=== PATIENT | male | born 1940 | race Two or more races ===

== ENCOUNTER 2017-07-20 08:50 | Outpatient (CLI) | payer MEDICARE | END 2017-07-20 23:59 | disposition home health service (06) | LOC: WOU 08:50 | PROVIDERS: ATTEND Podiatrist Foot & Ankle Surgery | DX: I87.311 Chronic venous hypertension (idiopathic) with ulcer of right lower extremity (principal); L97.312 Non-pressure chronic ulcer of right ankle with fat layer exposed; L97.812 Non-pressure chronic ulcer of other part of right lower leg with fat layer exposed; M79.661 Pain in right lower leg; Z79.899 Other long term (current) drug therapy; Z86.718 Personal history of other venous thrombosis and embolism; I10 Essential (primary) hypertension; K21.9 Gastro-esophageal reflux disease without esophagitis | CPT/HCPCS: 11042; A6402 ==

== ENCOUNTER 2017-07-27 10:27 | Outpatient (CLI) | payer MEDICARE | END 2017-07-27 23:59 | disposition home health service (06) | LOC: WOU 10:27 | PROVIDERS: ATTEND Podiatrist Foot & Ankle Surgery | DX: I87.311 Chronic venous hypertension (idiopathic) with ulcer of right lower extremity (principal); L97.312 Non-pressure chronic ulcer of right ankle with fat layer exposed; L97.512 Non-pressure chronic ulcer of other part of right foot with fat layer exposed; Z86.718 Personal history of other venous thrombosis and embolism; I10 Essential (primary) hypertension; Z79.899 Other long term (current) drug therapy | CPT/HCPCS: 11042; A6402; J3490 ==

== ENCOUNTER 2017-07-28 09:30 | Outpatient (CLI) | payer MEDICARE | END 2017-07-28 23:59 | disposition home or self-care (01) | LOC: WOU 09:30 | PROVIDERS: ATTEND Podiatrist Foot & Ankle Surgery | DX: I70.223 Atherosclerosis of native arteries of extremities with rest pain, bilateral legs (principal); I87.2 Venous insufficiency (chronic) (peripheral); L97.519 Non-pressure chronic ulcer of other part of right foot with unspecified severity | CPT/HCPCS: 11042; 93970-TC; A6402; J7040 ==

== ENCOUNTER 2017-08-03 09:15 | Outpatient (CLI) | payer MEDICARE | END 2017-08-03 23:59 | disposition home health service (06) | LOC: WOU 09:15 | PROVIDERS: ATTEND Podiatrist Foot & Ankle Surgery | DX: I87.311 Chronic venous hypertension (idiopathic) with ulcer of right lower extremity (principal); L97.312 Non-pressure chronic ulcer of right ankle with fat layer exposed; L97.812 Non-pressure chronic ulcer of other part of right lower leg with fat layer exposed; I87.2 Venous insufficiency (chronic) (peripheral); M79.661 Pain in right lower leg; I10 Essential (primary) hypertension; I82.531 Chronic embolism and thrombosis of right popliteal vein | CPT/HCPCS: 11042; A6402; J3490 ==

== ENCOUNTER 2017-08-10 09:15 | Outpatient (CLI) | payer MEDICARE | END 2017-08-10 23:59 | disposition home health service (06) | LOC: WOU 09:15 | PROVIDERS: ATTEND Podiatrist Foot & Ankle Surgery | DX: I87.311 Chronic venous hypertension (idiopathic) with ulcer of right lower extremity (principal); L97.312 Non-pressure chronic ulcer of right ankle with fat layer exposed; I87.2 Venous insufficiency (chronic) (peripheral); M79.661 Pain in right lower leg; I10 Essential (primary) hypertension; Z86.718 Personal history of other venous thrombosis and embolism | CPT/HCPCS: 11042; A6402; J3490; J7040 ==

== ENCOUNTER 2017-08-17 08:45 | Outpatient (CLI) | payer MEDICARE | END 2017-08-17 23:59 | disposition home health service (06) | LOC: WOU 08:45 | PROVIDERS: ATTEND Podiatrist Foot & Ankle Surgery | DX: I87.311 Chronic venous hypertension (idiopathic) with ulcer of right lower extremity (principal); L97.312 Non-pressure chronic ulcer of right ankle with fat layer exposed; I87.2 Venous insufficiency (chronic) (peripheral); M79.661 Pain in right lower leg | CPT/HCPCS: 11042; A6402; J3490; J7040 ==

== ENCOUNTER 2017-08-26 11:35 | Outpatient (CLI) | payer MEDICARE | END 2017-08-26 23:59 | disposition home health service (06) | LOC: WOU 11:35 | PROVIDERS: ATTEND Podiatrist Foot & Ankle Surgery | DX: I87.311 Chronic venous hypertension (idiopathic) with ulcer of right lower extremity (principal); L97.312 Non-pressure chronic ulcer of right ankle with fat layer exposed; Z86.718 Personal history of other venous thrombosis and embolism; I10 Essential (primary) hypertension | CPT/HCPCS: 11042; A6402; J3490 ==

== ENCOUNTER 2017-09-02 12:30 | Outpatient (CLI) | payer MEDICARE | END 2017-09-02 23:59 | disposition home or self-care (01) | LOC: WOU 12:30 | PROVIDERS: ATTEND Podiatrist Foot & Ankle Surgery | DX: I87.311 Chronic venous hypertension (idiopathic) with ulcer of right lower extremity (principal); L97.312 Non-pressure chronic ulcer of right ankle with fat layer exposed; M79.661 Pain in right lower leg; I87.2 Venous insufficiency (chronic) (peripheral); I82.531 Chronic embolism and thrombosis of right popliteal vein | CPT/HCPCS: 11042; A6402 ==

== ENCOUNTER 2017-09-14 12:45 | Outpatient (CLI) | payer MEDICARE | END 2017-09-14 23:59 | disposition home health service (06) | LOC: WOU 12:45 | PROVIDERS: ATTEND Podiatrist Foot & Ankle Surgery | DX: I87.311 Chronic venous hypertension (idiopathic) with ulcer of right lower extremity (principal); L97.312 Non-pressure chronic ulcer of right ankle with fat layer exposed; I82.531 Chronic embolism and thrombosis of right popliteal vein; I70.209 Unspecified atherosclerosis of native arteries of extremities, unspecified extremity | CPT/HCPCS: 11042; A6402 ==

== ENCOUNTER 2017-09-15 12:50 | Outpatient (CLI) | payer MEDICARE | END 2017-09-15 23:59 | disposition home health service (06) | LOC: VASLAB 12:50 | PROVIDERS: ATTEND Surgery Vascular Surgery | DX: I82.501 Chronic embolism and thrombosis of unspecified deep veins of right lower extremity (principal); I87.311 Chronic venous hypertension (idiopathic) with ulcer of right lower extremity; L97.312 Non-pressure chronic ulcer of right ankle with fat layer exposed | CPT/HCPCS: A6402; G0463 ==

== ENCOUNTER 2017-09-21 09:55 | Outpatient (CLI) | payer MEDICARE | END 2017-09-21 23:59 | disposition home or self-care (01) | LOC: WOU 09:55 | PROVIDERS: ATTEND Podiatrist Foot & Ankle Surgery | DX: I87.2 Venous insufficiency (chronic) (peripheral) (principal); I10 Essential (primary) hypertension | CPT/HCPCS: G0463 ==

== ENCOUNTER 2017-11-16 11:00 | Outpatient (CLI) | payer MEDICARE | END 2017-11-16 23:59 | disposition home or self-care (01) | LOC: WOU 11:00 | PROVIDERS: ATTEND Podiatrist Foot & Ankle Surgery | DX: I87.2 Venous insufficiency (chronic) (peripheral) (principal); L60.3 Nail dystrophy; Z86.718 Personal history of other venous thrombosis and embolism; I10 Essential (primary) hypertension | CPT/HCPCS: G0463 ==

== ENCOUNTER 2018-01-14 10:59 | Outpatient (CLI) | payer MEDICARE | END 2018-01-14 23:59 | disposition home or self-care (01) | LOC: WOU 10:59 | PROVIDERS: ATTEND Podiatrist Foot & Ankle Surgery | DX: I87.2 Venous insufficiency (chronic) (peripheral) (principal); Z86.718 Personal history of other venous thrombosis and embolism; L60.3 Nail dystrophy; I10 Essential (primary) hypertension | CPT/HCPCS: G0463 ==

== ENCOUNTER 2018-03-15 10:05 | Outpatient (CLI) | payer MEDICARE | END 2018-03-15 23:59 | disposition home or self-care (01) | LOC: WOU 10:05 | PROVIDERS: ATTEND Podiatrist Foot & Ankle Surgery | DX: I87.2 Venous insufficiency (chronic) (peripheral) (principal); L60.3 Nail dystrophy; M79.672 Pain in left foot; M21.769 Unequal limb length (acquired), unspecified tibia and fibula | CPT/HCPCS: G0463; Z7610 ==

== ENCOUNTER 2018-05-17 08:20 | Outpatient (CLI) | payer MEDICARE | END 2018-05-17 23:59 | disposition home or self-care (01) | LOC: WOU 08:20 | PROVIDERS: ATTEND Podiatrist Foot & Ankle Surgery | DX: M79.672 Pain in left foot (principal); M21.769 Unequal limb length (acquired), unspecified tibia and fibula; I87.2 Venous insufficiency (chronic) (peripheral); L60.3 Nail dystrophy; I10 Essential (primary) hypertension; E11.9 Type 2 diabetes mellitus without complications | CPT/HCPCS: G0463; Z7610 ==

== ENCOUNTER 2018-09-20 08:10 | Outpatient (CLI) | payer MEDICARE | END 2018-09-20 23:59 | disposition home or self-care (01) | LOC: WOU 08:10 | PROVIDERS: ATTEND Podiatrist Foot & Ankle Surgery | DX: I87.312 Chronic venous hypertension (idiopathic) with ulcer of left lower extremity (principal); L97.322 Non-pressure chronic ulcer of left ankle with fat layer exposed; I82.402 Acute embolism and thrombosis of unspecified deep veins of left lower extremity; M79.662 Pain in left lower leg; L60.3 Nail dystrophy; M21.769 Unequal limb length (acquired), unspecified tibia and fibula; Z79.01 Long term (current) use of anticoagulants | CPT/HCPCS: 11042; A6402 ==

== ENCOUNTER 2018-09-27 08:13 | Outpatient (CLI) | payer MEDICARE | END 2018-09-27 23:59 | disposition home or self-care (01) | LOC: WOU 08:13 | PROVIDERS: ATTEND Podiatrist Foot & Ankle Surgery | DX: I87.312 Chronic venous hypertension (idiopathic) with ulcer of left lower extremity (principal); L97.322 Non-pressure chronic ulcer of left ankle with fat layer exposed; I82.402 Acute embolism and thrombosis of unspecified deep veins of left lower extremity; M79.662 Pain in left lower leg; L60.3 Nail dystrophy; M21.769 Unequal limb length (acquired), unspecified tibia and fibula; I10 Essential (primary) hypertension; Z79.01 Long term (current) use of anticoagulants | CPT/HCPCS: 11042; A6402; Z7610 ==

== ENCOUNTER 2018-10-04 08:05 | Outpatient (CLI) | payer MEDICARE | END 2018-10-04 23:59 | disposition home or self-care (01) | LOC: WOU 08:05 | PROVIDERS: ATTEND Podiatrist Foot & Ankle Surgery | DX: I87.312 Chronic venous hypertension (idiopathic) with ulcer of left lower extremity (principal); L97.322 Non-pressure chronic ulcer of left ankle with fat layer exposed; I82.402 Acute embolism and thrombosis of unspecified deep veins of left lower extremity; Z79.01 Long term (current) use of anticoagulants; M79.662 Pain in left lower leg; I10 Essential (primary) hypertension; L60.3 Nail dystrophy; M21.769 Unequal limb length (acquired), unspecified tibia and fibula | CPT/HCPCS: 11042; A6402 ==

== ENCOUNTER 2018-10-11 08:10 | Outpatient (CLI) | payer MEDICARE | END 2018-10-11 23:59 | disposition home or self-care (01) | LOC: WOU 08:10 | PROVIDERS: ATTEND Podiatrist Foot & Ankle Surgery | DX: I87.312 Chronic venous hypertension (idiopathic) with ulcer of left lower extremity (principal); L97.322 Non-pressure chronic ulcer of left ankle with fat layer exposed; I82.402 Acute embolism and thrombosis of unspecified deep veins of left lower extremity; M79.662 Pain in left lower leg; L60.3 Nail dystrophy; M21.769 Unequal limb length (acquired), unspecified tibia and fibula; Z79.01 Long term (current) use of anticoagulants; Z79.82 Long term (current) use of aspirin; I10 Essential (primary) hypertension | CPT/HCPCS: 11042; A6402 ==

== ENCOUNTER 2018-10-18 09:05 | Outpatient (CLI) | payer MEDICARE | END 2018-10-18 23:59 | disposition home or self-care (01) | LOC: WOU 09:05 | PROVIDERS: ATTEND Podiatrist Foot & Ankle Surgery | DX: I87.312 Chronic venous hypertension (idiopathic) with ulcer of left lower extremity (principal); L97.322 Non-pressure chronic ulcer of left ankle with fat layer exposed; I82.402 Acute embolism and thrombosis of unspecified deep veins of left lower extremity; M79.662 Pain in left lower leg; L60.3 Nail dystrophy; M21.769 Unequal limb length (acquired), unspecified tibia and fibula; I10 Essential (primary) hypertension; Z79.01 Long term (current) use of anticoagulants | CPT/HCPCS: 11042; A6402; J3490 ==

== ENCOUNTER 2018-10-25 08:10 | Outpatient (CLI) | payer MEDICARE | END 2018-10-25 23:59 | disposition home or self-care (01) | LOC: WOU 08:10 | PROVIDERS: ATTEND Podiatrist Foot & Ankle Surgery | DX: I87.312 Chronic venous hypertension (idiopathic) with ulcer of left lower extremity (principal); L97.322 Non-pressure chronic ulcer of left ankle with fat layer exposed; I82.402 Acute embolism and thrombosis of unspecified deep veins of left lower extremity; M79.662 Pain in left lower leg; L60.3 Nail dystrophy; M21.769 Unequal limb length (acquired), unspecified tibia and fibula; I10 Essential (primary) hypertension; Z79.01 Long term (current) use of anticoagulants | CPT/HCPCS: 11042; A6402 ==

== ENCOUNTER 2018-11-01 08:27 | Outpatient (CLI) | payer MEDICARE | END 2018-11-01 23:59 | disposition home or self-care (01) | LOC: WOU 08:27 | PROVIDERS: ATTEND Podiatrist Foot & Ankle Surgery | DX: I87.312 Chronic venous hypertension (idiopathic) with ulcer of left lower extremity (principal); L97.322 Non-pressure chronic ulcer of left ankle with fat layer exposed; I82.402 Acute embolism and thrombosis of unspecified deep veins of left lower extremity; M79.662 Pain in left lower leg; L60.3 Nail dystrophy; M21.769 Unequal limb length (acquired), unspecified tibia and fibula; I10 Essential (primary) hypertension; Z79.01 Long term (current) use of anticoagulants; Z79.82 Long term (current) use of aspirin | CPT/HCPCS: 11042; A6402; J3490 ==

== ENCOUNTER 2018-11-08 08:40 | Outpatient (CLI) | payer MEDICARE | END 2018-11-08 23:59 | disposition home or self-care (01) | LOC: WOU 08:40 | PROVIDERS: ATTEND Podiatrist Foot & Ankle Surgery | DX: I87.312 Chronic venous hypertension (idiopathic) with ulcer of left lower extremity (principal); L97.322 Non-pressure chronic ulcer of left ankle with fat layer exposed; I82.402 Acute embolism and thrombosis of unspecified deep veins of left lower extremity; M79.662 Pain in left lower leg; L60.3 Nail dystrophy; M21.769 Unequal limb length (acquired), unspecified tibia and fibula; Z79.01 Long term (current) use of anticoagulants; Z79.82 Long term (current) use of aspirin | CPT/HCPCS: 11043; A6402; J7040 ==

== ENCOUNTER 2018-11-15 08:30 | Outpatient (CLI) | payer MEDICARE | END 2018-11-15 23:59 | disposition home or self-care (01) | LOC: WOU 08:30 | PROVIDERS: ATTEND Podiatrist Foot & Ankle Surgery | DX: I87.312 Chronic venous hypertension (idiopathic) with ulcer of left lower extremity (principal); L97.322 Non-pressure chronic ulcer of left ankle with fat layer exposed; I82.402 Acute embolism and thrombosis of unspecified deep veins of left lower extremity; M79.662 Pain in left lower leg; L60.3 Nail dystrophy; M21.769 Unequal limb length (acquired), unspecified tibia and fibula; Z79.01 Long term (current) use of anticoagulants; Z79.82 Long term (current) use of aspirin | CPT/HCPCS: 15271; A6402; A6452; Q4133 ==

== ENCOUNTER 2018-11-22 08:45 | Outpatient (CLI) | payer MEDICARE | END 2018-11-22 23:59 | disposition home or self-care (01) | LOC: WOU 08:45 | PROVIDERS: ATTEND Podiatrist Foot & Ankle Surgery | DX: I87.312 Chronic venous hypertension (idiopathic) with ulcer of left lower extremity (principal); L97.325 Non-pressure chronic ulcer of left ankle with muscle involvement without evidence of necrosis; S91.312A Laceration without foreign body, left foot, initial encounter; X58.XXXA Exposure to other specified factors, initial encounter; Y92.89 Other specified places as the place of occurrence of the external cause; I82.402 Acute embolism and thrombosis of unspecified deep veins of left lower extremity; M79.662 Pain in left lower leg; L60.3 Nail dystrophy; M21.769 Unequal limb length (acquired), unspecified tibia and fibula; Z79.01 Long term (current) use of anticoagulants; Z79.82 Long term (current) use of aspirin | CPT/HCPCS: 11042; 15271; A6402; A6452; Q4133 ==

== ENCOUNTER 2018-11-24 11:23 | Outpatient (CLI) | payer MEDICARE | END 2018-11-24 23:59 | disposition home or self-care (01) | LOC: RAD 11:23 | PROVIDERS: ATTEND Podiatrist Foot & Ankle Surgery | DX: S91.302A Unspecified open wound, left foot, initial encounter (principal); M19.072 Primary osteoarthritis, left ankle and foot; M77.32 Calcaneal spur, left foot; X58.XXXA Exposure to other specified factors, initial encounter; Y93.89 Activity, other specified; Y92.89 Other specified places as the place of occurrence of the external cause; Y99.8 Other external cause status | CPT/HCPCS: 73630-TC ==

== ENCOUNTER 2018-11-29 08:35 | Outpatient (CLI) | payer MEDICARE | END 2018-11-29 23:59 | disposition home or self-care (01) | LOC: WOU 08:35 | PROVIDERS: ATTEND Podiatrist Foot & Ankle Surgery | DX: I87.312 Chronic venous hypertension (idiopathic) with ulcer of left lower extremity (principal); L97.322 Non-pressure chronic ulcer of left ankle with fat layer exposed; I82.402 Acute embolism and thrombosis of unspecified deep veins of left lower extremity; M79.662 Pain in left lower leg; L60.3 Nail dystrophy; M21.769 Unequal limb length (acquired), unspecified tibia and fibula; I10 Essential (primary) hypertension; Z79.01 Long term (current) use of anticoagulants; Z79.82 Long term (current) use of aspirin | CPT/HCPCS: 15271; A6402; A6452; Q4133 ==

== ENCOUNTER 2018-12-06 08:45 | Outpatient (CLI) | payer MEDICARE | END 2018-12-06 23:59 | disposition home or self-care (01) | LOC: WOU 08:45 | PROVIDERS: ATTEND Podiatrist Foot & Ankle Surgery | DX: I87.312 Chronic venous hypertension (idiopathic) with ulcer of left lower extremity (principal); L97.322 Non-pressure chronic ulcer of left ankle with fat layer exposed; S81.811A Laceration without foreign body, right lower leg, initial encounter; W18.49XA Other slipping, tripping and stumbling without falling, initial encounter; Y92.89 Other specified places as the place of occurrence of the external cause; I82.402 Acute embolism and thrombosis of unspecified deep veins of left lower extremity; M79.662 Pain in left lower leg; L60.3 Nail dystrophy; M21.769 Unequal limb length (acquired), unspecified tibia and fibula; Z79.01 Long term (current) use of anticoagulants; Z79.82 Long term (current) use of aspirin | CPT/HCPCS: 15271; A6402; A6452; Q4133 ==

== ENCOUNTER 2018-12-13 08:45 | Outpatient (CLI) | payer MEDICARE | END 2018-12-13 23:59 | disposition home or self-care (01) | LOC: WOU 08:45 | PROVIDERS: ATTEND Podiatrist Foot & Ankle Surgery | DX: I87.312 Chronic venous hypertension (idiopathic) with ulcer of left lower extremity (principal); L97.322 Non-pressure chronic ulcer of left ankle with fat layer exposed; I82.402 Acute embolism and thrombosis of unspecified deep veins of left lower extremity; M79.662 Pain in left lower leg; L60.3 Nail dystrophy; I10 Essential (primary) hypertension; M21.769 Unequal limb length (acquired), unspecified tibia and fibula; Z79.01 Long term (current) use of anticoagulants; Z79.82 Long term (current) use of aspirin | CPT/HCPCS: 15271; A6253; A6402; A6452; Q4133 ==

== ENCOUNTER 2018-12-14 14:10 | Outpatient (CLI) | payer MEDICARE | END 2018-12-14 23:59 | disposition home or self-care (01) | LOC: VASLAB 14:10 | PROVIDERS: ATTEND Surgery Vascular Surgery | DX: I87.2 Venous insufficiency (chronic) (peripheral) (principal); L97.829 Non-pressure chronic ulcer of other part of left lower leg with unspecified severity; Z79.01 Long term (current) use of anticoagulants; Z86.718 Personal history of other venous thrombosis and embolism | CPT/HCPCS: G0463 ==

== ENCOUNTER 2018-12-20 08:40 | Outpatient (CLI) | payer MEDICARE | END 2018-12-20 23:59 | disposition home or self-care (01) | LOC: WOU 08:40 | PROVIDERS: ATTEND Podiatrist Foot & Ankle Surgery | DX: I87.312 Chronic venous hypertension (idiopathic) with ulcer of left lower extremity (principal); L97.322 Non-pressure chronic ulcer of left ankle with fat layer exposed; S81.811D Laceration without foreign body, right lower leg, subsequent encounter; X58.XXXD Exposure to other specified factors, subsequent encounter; I82.402 Acute embolism and thrombosis of unspecified deep veins of left lower extremity; M79.662 Pain in left lower leg; L60.3 Nail dystrophy; M21.769 Unequal limb length (acquired), unspecified tibia and fibula; Z79.01 Long term (current) use of anticoagulants | CPT/HCPCS: 15271; A6402; A6452; Q4133 ==

== ENCOUNTER 2018-12-27 08:50 | Outpatient (CLI) | payer MEDICARE | END 2018-12-27 23:59 | disposition home or self-care (01) | LOC: WOU 08:50 | PROVIDERS: ATTEND Podiatrist Foot & Ankle Surgery | DX: I87.312 Chronic venous hypertension (idiopathic) with ulcer of left lower extremity (principal); L97.322 Non-pressure chronic ulcer of left ankle with fat layer exposed; I82.402 Acute embolism and thrombosis of unspecified deep veins of left lower extremity; L60.3 Nail dystrophy; M21.769 Unequal limb length (acquired), unspecified tibia and fibula; I10 Essential (primary) hypertension; I82.409 Acute embolism and thrombosis of unspecified deep veins of unspecified lower extremity; Z79.01 Long term (current) use of anticoagulants | CPT/HCPCS: 15271; Q4133; A6402 ==

== ENCOUNTER 2018-12-30 13:28 | Outpatient (CLI) | payer MEDICARE | END 2018-12-30 23:59 | disposition home or self-care (01) | LOC: CARD 13:28 | PROVIDERS: ATTEND Surgery Vascular Surgery | DX: I82.432 Acute embolism and thrombosis of left popliteal vein (principal) | CPT/HCPCS: 93971-TC ==

== ENCOUNTER 2019-01-03 08:45 | Outpatient (CLI) | payer MEDICARE | END 2019-01-03 23:59 | disposition home or self-care (01) | LOC: WOU 08:45 | PROVIDERS: ATTEND Podiatrist Foot & Ankle Surgery | DX: I87.312 Chronic venous hypertension (idiopathic) with ulcer of left lower extremity (principal); L97.322 Non-pressure chronic ulcer of left ankle with fat layer exposed; I82.402 Acute embolism and thrombosis of unspecified deep veins of left lower extremity; M79.662 Pain in left lower leg; L60.3 Nail dystrophy; M21.769 Unequal limb length (acquired), unspecified tibia and fibula; Z79.01 Long term (current) use of anticoagulants; I10 Essential (primary) hypertension | CPT/HCPCS: 15275; A6402; A6452; Q4133 ==

== ENCOUNTER 2019-01-10 13:10 | Outpatient (CLI) | payer MEDICARE | END 2019-01-10 23:59 | disposition home or self-care (01) | LOC: WOU 13:10 | PROVIDERS: ATTEND Podiatrist Foot & Ankle Surgery | DX: I87.312 Chronic venous hypertension (idiopathic) with ulcer of left lower extremity (principal); L97.322 Non-pressure chronic ulcer of left ankle with fat layer exposed; I82.402 Acute embolism and thrombosis of unspecified deep veins of left lower extremity; M79.662 Pain in left lower leg; L60.3 Nail dystrophy; M21.769 Unequal limb length (acquired), unspecified tibia and fibula; I10 Essential (primary) hypertension; Z79.01 Long term (current) use of anticoagulants | CPT/HCPCS: 11042; A6402 ==

== ENCOUNTER 2019-01-17 13:10 | Outpatient (CLI) | payer MEDICARE | END 2019-01-17 23:59 | disposition home or self-care (01) | LOC: WOU 13:10 | PROVIDERS: ATTEND Podiatrist Foot & Ankle Surgery | DX: I87.312 Chronic venous hypertension (idiopathic) with ulcer of left lower extremity (principal); L97.322 Non-pressure chronic ulcer of left ankle with fat layer exposed; I82.402 Acute embolism and thrombosis of unspecified deep veins of left lower extremity; L60.3 Nail dystrophy; M21.769 Unequal limb length (acquired), unspecified tibia and fibula; I10 Essential (primary) hypertension; Z79.01 Long term (current) use of anticoagulants | CPT/HCPCS: 11042; A6402 ==

== ENCOUNTER 2019-02-14 08:30 | Outpatient (CLI) | payer MEDICARE | END 2019-02-14 23:59 | disposition home or self-care (01) | LOC: WOU 08:30 | PROVIDERS: ATTEND Podiatrist Foot & Ankle Surgery | DX: I87.312 Chronic venous hypertension (idiopathic) with ulcer of left lower extremity (principal); L97.322 Non-pressure chronic ulcer of left ankle with fat layer exposed; I82.402 Acute embolism and thrombosis of unspecified deep veins of left lower extremity; M79.662 Pain in left lower leg; L60.3 Nail dystrophy; I10 Essential (primary) hypertension; M21.769 Unequal limb length (acquired), unspecified tibia and fibula; Z79.01 Long term (current) use of anticoagulants | CPT/HCPCS: 11042; A6402 ==

== ENCOUNTER 2019-02-21 08:35 | Outpatient (CLI) | payer MEDICARE | END 2019-02-21 23:59 | disposition home or self-care (01) | LOC: WOU 08:35 | PROVIDERS: ATTEND Podiatrist Foot & Ankle Surgery | DX: I87.312 Chronic venous hypertension (idiopathic) with ulcer of left lower extremity (principal); L97.322 Non-pressure chronic ulcer of left ankle with fat layer exposed; I82.402 Acute embolism and thrombosis of unspecified deep veins of left lower extremity; L60.3 Nail dystrophy; M21.769 Unequal limb length (acquired), unspecified tibia and fibula; Z79.01 Long term (current) use of anticoagulants | CPT/HCPCS: 11042; A6402 ==

== ENCOUNTER 2019-03-10 08:30 | Outpatient (CLI) | payer MEDICARE | END 2019-03-10 23:59 | disposition home or self-care (01) | LOC: WOU 08:30 | PROVIDERS: ATTEND Podiatrist Foot & Ankle Surgery | DX: I87.312 Chronic venous hypertension (idiopathic) with ulcer of left lower extremity (principal); L97.322 Non-pressure chronic ulcer of left ankle with fat layer exposed; M79.662 Pain in left lower leg; L60.3 Nail dystrophy; M21.769 Unequal limb length (acquired), unspecified tibia and fibula; I87.2 Venous insufficiency (chronic) (peripheral); Z86.718 Personal history of other venous thrombosis and embolism; Z79.01 Long term (current) use of anticoagulants; I10 Essential (primary) hypertension | CPT/HCPCS: 11042; A6402 ==

== ENCOUNTER 2019-03-24 08:30 | Outpatient (CLI) | payer MEDICARE | END 2019-03-24 23:59 | disposition home or self-care (01) | LOC: WOU 08:30 | PROVIDERS: ATTEND Podiatrist Foot & Ankle Surgery | DX: I87.312 Chronic venous hypertension (idiopathic) with ulcer of left lower extremity (principal); L97.322 Non-pressure chronic ulcer of left ankle with fat layer exposed; M79.675 Pain in left toe(s); I10 Essential (primary) hypertension; Z79.01 Long term (current) use of anticoagulants; Z79.899 Other long term (current) drug therapy; Z86.718 Personal history of other venous thrombosis and embolism; M21.769 Unequal limb length (acquired), unspecified tibia and fibula | CPT/HCPCS: 11042 ==

== ENCOUNTER 2019-04-07 08:45 | Outpatient (CLI) | payer MEDICARE | END 2019-04-07 23:59 | disposition home or self-care (01) | LOC: WOU 08:45 | PROVIDERS: ATTEND Podiatrist Foot & Ankle Surgery | DX: I87.012 Postthrombotic syndrome with ulcer of left lower extremity (principal); L97.322 Non-pressure chronic ulcer of left ankle with fat layer exposed; S91.312A Laceration without foreign body, left foot, initial encounter; X58.XXXA Exposure to other specified factors, initial encounter; Y92.89 Other specified places as the place of occurrence of the external cause; L60.3 Nail dystrophy; M21.769 Unequal limb length (acquired), unspecified tibia and fibula; M79.672 Pain in left foot; M79.662 Pain in left lower leg; Z86.718 Personal history of other venous thrombosis and embolism; Z79.01 Long term (current) use of anticoagulants | CPT/HCPCS: 11042; 15271; 73630; J3490; Q4158 ×2 ==

== ENCOUNTER 2019-04-14 08:45 | Outpatient (CLI) | payer MEDICARE | END 2019-04-14 23:59 | disposition home or self-care (01) | LOC: WOU 08:45 | PROVIDERS: ATTEND Podiatrist Foot & Ankle Surgery | DX: I87.312 Chronic venous hypertension (idiopathic) with ulcer of left lower extremity (principal); L97.322 Non-pressure chronic ulcer of left ankle with fat layer exposed; L60.3 Nail dystrophy; M21.769 Unequal limb length (acquired), unspecified tibia and fibula; I10 Essential (primary) hypertension; Z86.718 Personal history of other venous thrombosis and embolism; Z79.01 Long term (current) use of anticoagulants | CPT/HCPCS: 15271; Q4158 ×2 ==

== ENCOUNTER 2019-04-25 08:50 | Outpatient (CLI) | payer MEDICARE | END 2019-04-25 23:59 | disposition home or self-care (01) | LOC: WOU 08:50 | PROVIDERS: ATTEND Podiatrist Foot & Ankle Surgery | DX: I87.312 Chronic venous hypertension (idiopathic) with ulcer of left lower extremity (principal); L97.328 Non-pressure chronic ulcer of left ankle with other specified severity; S91.312A Laceration without foreign body, left foot, initial encounter; X58.XXXA Exposure to other specified factors, initial encounter; Y92.89 Other specified places as the place of occurrence of the external cause; I87.2 Venous insufficiency (chronic) (peripheral); M79.662 Pain in left lower leg; L60.3 Nail dystrophy; M21.769 Unequal limb length (acquired), unspecified tibia and fibula; Z86.718 Personal history of other venous thrombosis and embolism; Z79.01 Long term (current) use of anticoagulants | CPT/HCPCS: 11042 ==

== ENCOUNTER 2019-05-05 12:17 | Outpatient (CLI) | payer MEDICARE | END 2019-05-05 23:59 | disposition home or self-care (01) | LOC: CARD 12:17 | PROVIDERS: ATTEND Podiatrist Foot & Ankle Surgery | DX: M79.605 Pain in left leg (principal); L97.929 Non-pressure chronic ulcer of unspecified part of left lower leg with unspecified severity; I73.9 Peripheral vascular disease, unspecified | CPT/HCPCS: 93926-TC ==

== ENCOUNTER 2019-05-09 10:20 | Outpatient (CLI) | payer MEDICARE | END 2019-05-09 23:59 | disposition home or self-care (01) | LOC: WOU 10:20 | PROVIDERS: ATTEND Podiatrist Foot & Ankle Surgery | DX: Z09 Encounter for follow-up examination after completed treatment for conditions other than malignant neoplasm (principal); Z87.2 Personal history of diseases of the skin and subcutaneous tissue; I87.2 Venous insufficiency (chronic) (peripheral); L84 Corns and callosities; M79.662 Pain in left lower leg; L60.3 Nail dystrophy; M21.769 Unequal limb length (acquired), unspecified tibia and fibula | CPT/HCPCS: G0463 ==

== ENCOUNTER 2019-06-13 08:35 | Outpatient (CLI) | payer MEDICARE | END 2019-06-13 23:59 | disposition home or self-care (01) | LOC: WOU 08:35 | PROVIDERS: ATTEND Podiatrist Foot & Ankle Surgery | DX: Z09 Encounter for follow-up examination after completed treatment for conditions other than malignant neoplasm (principal); I87.2 Venous insufficiency (chronic) (peripheral); L60.3 Nail dystrophy; M21.769 Unequal limb length (acquired), unspecified tibia and fibula; I10 Essential (primary) hypertension; Z87.2 Personal history of diseases of the skin and subcutaneous tissue; Z79.01 Long term (current) use of anticoagulants | CPT/HCPCS: G0463 ==

== ENCOUNTER 2019-09-12 10:25 | Outpatient (CLI) | payer MEDICARE | END 2019-09-12 23:59 | disposition home or self-care (01) | LOC: WOU 10:25 | PROVIDERS: ATTEND Podiatrist Foot & Ankle Surgery | DX: L60.3 Nail dystrophy (principal); I87.2 Venous insufficiency (chronic) (peripheral); M21.769 Unequal limb length (acquired), unspecified tibia and fibula; M79.671 Pain in right foot; M79.672 Pain in left foot; Z79.01 Long term (current) use of anticoagulants | CPT/HCPCS: G0463 ==

== ENCOUNTER 2019-10-06 08:25 | Outpatient (CLI) | payer MEDICARE | END 2019-10-06 23:59 | disposition home or self-care (01) | LOC: WOU 08:25 | PROVIDERS: ATTEND Podiatrist Foot & Ankle Surgery | DX: L89.893 Pressure ulcer of other site, stage 3 (principal); M21.769 Unequal limb length (acquired), unspecified tibia and fibula; Z86.718 Personal history of other venous thrombosis and embolism; Z79.01 Long term (current) use of anticoagulants; I87.2 Venous insufficiency (chronic) (peripheral); L60.3 Nail dystrophy; M79.672 Pain in left foot | CPT/HCPCS: 11042 ==

== ENCOUNTER 2019-10-13 08:25 | Outpatient (CLI) | payer MEDICARE | END 2019-10-13 23:59 | disposition home or self-care (01) | LOC: WOU 08:25 | PROVIDERS: ATTEND Podiatrist Foot & Ankle Surgery | DX: L89.893 Pressure ulcer of other site, stage 3 (principal); M21.769 Unequal limb length (acquired), unspecified tibia and fibula; I87.2 Venous insufficiency (chronic) (peripheral); L60.3 Nail dystrophy; M79.672 Pain in left foot; Z86.718 Personal history of other venous thrombosis and embolism; I10 Essential (primary) hypertension; Z90.5 Acquired absence of kidney; Z79.01 Long term (current) use of anticoagulants | CPT/HCPCS: 11042 ==

== ENCOUNTER 2019-10-20 08:20 | Outpatient (CLI) | payer MEDICARE | END 2019-10-20 23:59 | disposition home or self-care (01) | LOC: WOU 08:20 | PROVIDERS: ATTEND Podiatrist Foot & Ankle Surgery | DX: Z09 Encounter for follow-up examination after completed treatment for conditions other than malignant neoplasm (principal); Z86.718 Personal history of other venous thrombosis and embolism; Z79.01 Long term (current) use of anticoagulants; L60.3 Nail dystrophy; M21.769 Unequal limb length (acquired), unspecified tibia and fibula; I87.2 Venous insufficiency (chronic) (peripheral); L84 Corns and callosities | CPT/HCPCS: G0463 ==

== ENCOUNTER 2019-12-01 08:45 | Outpatient (CLI) | payer MEDICARE | END 2019-12-01 23:59 | disposition home or self-care (01) | LOC: WOU 08:45 | PROVIDERS: ATTEND Podiatrist Foot & Ankle Surgery | DX: L60.3 Nail dystrophy (principal); L84 Corns and callosities; I87.2 Venous insufficiency (chronic) (peripheral); M79.672 Pain in left foot; M79.671 Pain in right foot; M21.769 Unequal limb length (acquired), unspecified tibia and fibula; Z79.01 Long term (current) use of anticoagulants; I10 Essential (primary) hypertension | CPT/HCPCS: G0463 ==

== ENCOUNTER 2019-12-22 08:00 | Outpatient (CLI) | payer MEDICARE | END 2019-12-22 23:59 | disposition home or self-care (01) | LOC: WOU 08:00 | PROVIDERS: ATTEND Podiatrist Foot & Ankle Surgery | DX: L89.893 Pressure ulcer of other site, stage 3 (principal); I87.2 Venous insufficiency (chronic) (peripheral); L84 Corns and callosities; L60.3 Nail dystrophy; M79.672 Pain in left foot; M79.671 Pain in right foot; M21.769 Unequal limb length (acquired), unspecified tibia and fibula; Z79.01 Long term (current) use of anticoagulants | CPT/HCPCS: 11042 ==

== ENCOUNTER 2019-12-29 08:20 | Outpatient (CLI) | payer MEDICARE | END 2019-12-29 23:59 | disposition home or self-care (01) | LOC: WOU 08:20 | PROVIDERS: ATTEND Podiatrist Foot & Ankle Surgery | DX: L89.893 Pressure ulcer of other site, stage 3 (principal); L97.522 Non-pressure chronic ulcer of other part of left foot with fat layer exposed; I87.2 Venous insufficiency (chronic) (peripheral); L60.3 Nail dystrophy; L84 Corns and callosities; M79.672 Pain in left foot; M79.671 Pain in right foot; M21.769 Unequal limb length (acquired), unspecified tibia and fibula; Z79.01 Long term (current) use of anticoagulants | CPT/HCPCS: 11042 ==

== ENCOUNTER 2020-01-05 08:30 | Outpatient (CLI) | payer MEDICARE | END 2020-01-05 23:59 | disposition home or self-care (01) | LOC: WOU 08:30 | PROVIDERS: ATTEND Podiatrist Foot & Ankle Surgery | DX: L89.893 Pressure ulcer of other site, stage 3 (principal); L97.522 Non-pressure chronic ulcer of other part of left foot with fat layer exposed; L98.8 Other specified disorders of the skin and subcutaneous tissue; I87.2 Venous insufficiency (chronic) (peripheral); L84 Corns and callosities; L60.3 Nail dystrophy; M79.672 Pain in left foot; M79.671 Pain in right foot; I10 Essential (primary) hypertension; M21.769 Unequal limb length (acquired), unspecified tibia and fibula; Z79.01 Long term (current) use of anticoagulants | CPT/HCPCS: 11042 ==

== ENCOUNTER 2020-01-12 08:15 | Outpatient (CLI) | payer MEDICARE | END 2020-01-12 23:59 | disposition home or self-care (01) | LOC: WOU 08:15 | PROVIDERS: ATTEND Podiatrist Foot & Ankle Surgery | DX: L97.522 Non-pressure chronic ulcer of other part of left foot with fat layer exposed (principal); L84 Corns and callosities; I87.2 Venous insufficiency (chronic) (peripheral); Z79.01 Long term (current) use of anticoagulants; L60.3 Nail dystrophy; M79.672 Pain in left foot; M79.671 Pain in right foot; I10 Essential (primary) hypertension; M21.769 Unequal limb length (acquired), unspecified tibia and fibula | CPT/HCPCS: 11042 ==

== ENCOUNTER 2020-01-19 08:20 | Outpatient (CLI) | payer MEDICARE | END 2020-01-19 23:59 | disposition home or self-care (01) | LOC: WOU 08:20 | PROVIDERS: ATTEND Podiatrist Foot & Ankle Surgery | DX: L97.522 Non-pressure chronic ulcer of other part of left foot with fat layer exposed (principal); I87.2 Venous insufficiency (chronic) (peripheral); L84 Corns and callosities; L60.3 Nail dystrophy; M79.672 Pain in left foot; M79.671 Pain in right foot; Z79.01 Long term (current) use of anticoagulants | CPT/HCPCS: 11042 ==

== ENCOUNTER 2020-01-26 08:20 | Outpatient (CLI) | payer MEDICARE | END 2020-01-26 23:59 | disposition home or self-care (01) | LOC: WOU 08:20 | PROVIDERS: ATTEND Podiatrist Foot & Ankle Surgery | DX: L84 Corns and callosities (principal); I87.2 Venous insufficiency (chronic) (peripheral); L60.3 Nail dystrophy; M79.672 Pain in left foot; M79.671 Pain in right foot; M21.769 Unequal limb length (acquired), unspecified tibia and fibula; Z79.01 Long term (current) use of anticoagulants; I10 Essential (primary) hypertension | CPT/HCPCS: G0463 ==

== ENCOUNTER 2020-03-01 08:20 | Outpatient (CLI) | payer MEDICARE | END 2020-03-01 23:59 | disposition home or self-care (01) | LOC: WOU 08:20 | PROVIDERS: ATTEND Podiatrist Foot & Ankle Surgery | DX: L84 Corns and callosities (principal); I87.2 Venous insufficiency (chronic) (peripheral); L60.3 Nail dystrophy; M79.672 Pain in left foot; M79.671 Pain in right foot; M21.769 Unequal limb length (acquired), unspecified tibia and fibula; Z79.01 Long term (current) use of anticoagulants | CPT/HCPCS: G0463 ==

== ENCOUNTER 2020-05-03 08:25 | Outpatient (CLI) | payer MEDICARE | END 2020-05-03 23:59 | disposition home or self-care (01) | LOC: WOU 08:25 | PROVIDERS: ATTEND Podiatrist Foot & Ankle Surgery | DX: L84 Corns and callosities (principal); I87.2 Venous insufficiency (chronic) (peripheral); L98.8 Other specified disorders of the skin and subcutaneous tissue; L60.3 Nail dystrophy; M79.672 Pain in left foot; M79.671 Pain in right foot; M21.769 Unequal limb length (acquired), unspecified tibia and fibula; Z79.01 Long term (current) use of anticoagulants | CPT/HCPCS: G0463 ==

== ENCOUNTER 2020-07-12 08:40 | Outpatient (CLI) | payer MEDICARE | END 2020-07-12 23:59 | disposition home or self-care (01) | LOC: WOU 08:40 | PROVIDERS: ATTEND Podiatrist Foot & Ankle Surgery | DX: L84 Corns and callosities (principal); L60.3 Nail dystrophy; I87.2 Venous insufficiency (chronic) (peripheral); M79.672 Pain in left foot; M79.671 Pain in right foot; I10 Essential (primary) hypertension; M21.769 Unequal limb length (acquired), unspecified tibia and fibula; Z79.01 Long term (current) use of anticoagulants | CPT/HCPCS: G0463 ==

== ENCOUNTER 2020-09-13 08:00 | Outpatient (CLI) | payer MEDICARE | END 2020-09-13 23:59 | disposition home or self-care (01) | LOC: WOU 08:00 | PROVIDERS: ATTEND Podiatrist Foot & Ankle Surgery | DX: S81.812A Laceration without foreign body, left lower leg, initial encounter (principal); X58.XXXA Exposure to other specified factors, initial encounter; Y92.89 Other specified places as the place of occurrence of the external cause; I87.2 Venous insufficiency (chronic) (peripheral); L03.116 Cellulitis of left lower limb; L60.3 Nail dystrophy; L84 Corns and callosities; M79.672 Pain in left foot; M79.671 Pain in right foot; M21.769 Unequal limb length (acquired), unspecified tibia and fibula; Z79.01 Long term (current) use of anticoagulants | CPT/HCPCS: 11042 ==

== ENCOUNTER 2020-09-20 08:20 | Outpatient (CLI) | payer MEDICARE ==
[2020-09-20] MEDS ORDERED: LIDOCAINE SOLN 4% 50 ML BOTTLE ONE (08:33)
== END 2020-09-20 23:59 | disposition home or self-care (01) ==
LOC: WOU 08:20
PROVIDERS: ATTEND Podiatrist Foot & Ankle Surgery
DX: S81.812A Laceration without foreign body, left lower leg, initial encounter (principal); S91.115A Laceration without foreign body of left lesser toe(s) without damage to nail, initial encounter; W22.8XXA Striking against or struck by other objects, initial encounter; Y92.89 Other specified places as the place of occurrence of the external cause; L03.116 Cellulitis of left lower limb; L60.3 Nail dystrophy; I87.2 Venous insufficiency (chronic) (peripheral); L84 Corns and callosities; M79.672 Pain in left foot; M79.671 Pain in right foot
CPT/HCPCS: 11042; A6210

== ENCOUNTER 2020-09-27 08:20 | Outpatient (CLI) | payer MEDICARE ==
[2020-09-27] MEDS ORDERED: LIDOCAINE SOLN 4% 50 ML BOTTLE ONE (08:27)
== END 2020-09-27 23:59 | disposition home or self-care (01) ==
LOC: WOU 08:20
PROVIDERS: ATTEND Podiatrist Foot & Ankle Surgery
DX: S81.812A Laceration without foreign body, left lower leg, initial encounter (principal); S91.115A Laceration without foreign body of left lesser toe(s) without damage to nail, initial encounter; W22.8XXA Striking against or struck by other objects, initial encounter; Y92.89 Other specified places as the place of occurrence of the external cause; L03.116 Cellulitis of left lower limb; I87.2 Venous insufficiency (chronic) (peripheral); L60.3 Nail dystrophy; L84 Corns and callosities; M79.672 Pain in left foot; M79.671 Pain in right foot; M21.769 Unequal limb length (acquired), unspecified tibia and fibula; Z79.01 Long term (current) use of anticoagulants
CPT/HCPCS: 11042

== ENCOUNTER 2020-10-08 10:20 | Outpatient (CLI) | payer MEDICARE | END 2020-10-08 23:59 | disposition home or self-care (01) | LOC: WOU 10:20 | PROVIDERS: ATTEND Podiatrist Foot & Ankle Surgery | DX: S91.115A Laceration without foreign body of left lesser toe(s) without damage to nail, initial encounter (principal); W22.8XXA Striking against or struck by other objects, initial encounter; Y92.89 Other specified places as the place of occurrence of the external cause; S81.812D Laceration without foreign body, left lower leg, subsequent encounter; W22.8XXD Striking against or struck by other objects, subsequent encounter; I87.2 Venous insufficiency (chronic) (peripheral); L60.3 Nail dystrophy; L84 Corns and callosities; M79.672 Pain in left foot; M79.671 Pain in right foot; M21.769 Unequal limb length (acquired), unspecified tibia and fibula; Z79.02 Long term (current) use of antithrombotics/antiplatelets | CPT/HCPCS: 11042 ==

== ENCOUNTER 2020-10-15 10:05 | Outpatient (CLI) | payer MEDICARE ==
[2020-10-15] MEDS ORDERED: UREA 10% -AHA 4% CREAM 57 GM TUBE ONE (10:51)
== END 2020-10-15 23:59 | disposition home or self-care (01) ==
LOC: WOU 10:05
PROVIDERS: ATTEND Podiatrist Foot & Ankle Surgery
DX: S91.115A Laceration without foreign body of left lesser toe(s) without damage to nail, initial encounter (principal); X58.XXXA Exposure to other specified factors, initial encounter; Y92.89 Other specified places as the place of occurrence of the external cause; S81.812D Laceration without foreign body, left lower leg, subsequent encounter; X58.XXXD Exposure to other specified factors, subsequent encounter; I87.2 Venous insufficiency (chronic) (peripheral); Z79.01 Long term (current) use of anticoagulants; L84 Corns and callosities; L60.3 Nail dystrophy; M21.769 Unequal limb length (acquired), unspecified tibia and fibula; M79.672 Pain in left foot; M79.671 Pain in right foot
CPT/HCPCS: 11042

== ENCOUNTER 2020-10-25 09:50 | Outpatient (CLI) | payer MEDICARE ==
[2020-10-25] MEDS ORDERED: UREA 10% -AHA 4% CREAM 57 GM TUBE ONE (10:10)
== END 2020-10-25 23:59 | disposition home or self-care (01) ==
LOC: WOU 09:50
PROVIDERS: ATTEND Podiatrist Foot & Ankle Surgery
DX: S81.812D Laceration without foreign body, left lower leg, subsequent encounter (principal); X58.XXXD Exposure to other specified factors, subsequent encounter; I87.2 Venous insufficiency (chronic) (peripheral); Z79.01 Long term (current) use of anticoagulants; M79.662 Pain in left lower leg; L60.3 Nail dystrophy; L84 Corns and callosities; M79.672 Pain in left foot; M79.671 Pain in right foot; M21.769 Unequal limb length (acquired), unspecified tibia and fibula
CPT/HCPCS: G0463

== ENCOUNTER 2020-10-25 11:03 | Outpatient (CLI) | payer MEDICARE | END 2020-10-25 23:59 | disposition home or self-care (01) | LOC: CARD 11:03 | PROVIDERS: ATTEND Podiatrist Foot & Ankle Surgery | DX: I82.433 Acute embolism and thrombosis of popliteal vein, bilateral (principal) | CPT/HCPCS: 93970-TC ==

== ENCOUNTER 2020-11-22 08:45 | Outpatient (CLI) | payer MEDICARE | END 2020-11-22 23:59 | disposition home or self-care (01) | LOC: WOU 08:45 | PROVIDERS: ATTEND Podiatrist Foot & Ankle Surgery | DX: S81.812D Laceration without foreign body, left lower leg, subsequent encounter (principal); X58.XXXD Exposure to other specified factors, subsequent encounter; I87.2 Venous insufficiency (chronic) (peripheral); I73.9 Peripheral vascular disease, unspecified; L84 Corns and callosities; L60.3 Nail dystrophy; M21.769 Unequal limb length (acquired), unspecified tibia and fibula; Z79.01 Long term (current) use of anticoagulants; I10 Essential (primary) hypertension | CPT/HCPCS: G0463 ==

== ENCOUNTER 2020-12-06 08:35 | Outpatient (CLI) | payer MEDICARE ==
[2020-12-06] MEDS ORDERED: UREA 10% -AHA 4% CREAM 57 GM TUBE ONE (09:08)
== END 2020-12-06 23:59 | disposition home or self-care (01) ==
LOC: WOU 08:35
PROVIDERS: ATTEND Podiatrist Foot & Ankle Surgery
DX: I87.2 Venous insufficiency (chronic) (peripheral) (principal); Z79.01 Long term (current) use of anticoagulants; L60.3 Nail dystrophy; L84 Corns and callosities; M21.769 Unequal limb length (acquired), unspecified tibia and fibula; M79.672 Pain in left foot
CPT/HCPCS: G0463

== ENCOUNTER 2021-09-16 10:20 | Outpatient (CLI) | payer MEDICARE, BC | END 2021-09-16 23:59 | disposition home or self-care (01) | LOC: WOU 10:20 | PROVIDERS: ATTEND Podiatrist Foot & Ankle Surgery | DX: L89.893 Pressure ulcer of other site, stage 3 (principal); L60.3 Nail dystrophy; L84 Corns and callosities; I87.2 Venous insufficiency (chronic) (peripheral); M79.672 Pain in left foot; M79.671 Pain in right foot; M21.769 Unequal limb length (acquired), unspecified tibia and fibula; Z79.01 Long term (current) use of anticoagulants | CPT/HCPCS: 11042 ==

== ENCOUNTER 2021-10-03 09:20 | Outpatient (CLI) | payer MEDICARE, BC ==
[2021-10-03] MEDS ORDERED: LIDOCAINE SOLN 4% 50 ML BOTTLE ONE (09:29)
[2021-10-03] MEDS ORDERED: UREA 10% -AHA 4% CREAM 57 GM TUBE ONE (09:56)
== END 2021-10-03 23:59 | disposition home or self-care (01) ==
LOC: WOU 09:20
PROVIDERS: ATTEND Podiatrist Foot & Ankle Surgery
DX: L89.893 Pressure ulcer of other site, stage 3 (principal); I87.2 Venous insufficiency (chronic) (peripheral); L60.3 Nail dystrophy; L84 Corns and callosities; M79.672 Pain in left foot; M79.671 Pain in right foot; M21.769 Unequal limb length (acquired), unspecified tibia and fibula; Z79.01 Long term (current) use of anticoagulants
CPT/HCPCS: 11042

== ENCOUNTER 2021-10-17 09:20 | Outpatient (CLI) | payer MEDICARE, BC ==
[2021-10-17] MEDS ORDERED: UREA 10% -AHA 4% CREAM 57 GM TUBE ONE (10:01)
== END 2021-10-17 23:59 | disposition home or self-care (01) ==
LOC: WOU 09:20
PROVIDERS: ATTEND Podiatrist Foot & Ankle Surgery
DX: L89.616 Pressure-induced deep tissue damage of right heel (principal); I87.2 Venous insufficiency (chronic) (peripheral); L60.3 Nail dystrophy; L84 Corns and callosities; M79.672 Pain in left foot; M79.671 Pain in right foot; M21.769 Unequal limb length (acquired), unspecified tibia and fibula; Z79.01 Long term (current) use of anticoagulants
CPT/HCPCS: G0463

== ENCOUNTER 2021-12-16 09:24 | Inpatient (IN) | payer MEDICARE, BC ==
[~2021-12-16] VITALS: Ht 162.6 cm; Wt 117.0 kg
--- NOTE | 2021-12-16 09:26 | NUR ---
[facility]IB [facility],SOB,CHILLS AND WEAKNESS,02 SAT 80'S ON RA. AAOX4, O2 SAT 94% ON 4LIT. O2.
--- NOTE | 2021-12-16 09:27 | NUR ---
ON BED SIDE
[2021-12-16] MEDS ORDERED: PIPERACILLIN /TAZOBACTAM 3.375 G in IV D5W 50 ML IV ONE (09:30)
[2021-12-16] MEDS ORDERED: VANCOMYCIN 1 GM in IV D5W 250 ML IV ONE (09:30)
[2021-12-16] MEDS ORDERED: ACETAMINOPHEN ES 500 MG TABLET PO ONE (09:30)
[2021-12-16] MEDS ORDERED: IV NS 0.9% 500 ML BAG IV ONE (09:30)
--- NOTE | 2021-12-16 09:55 | NUR ---
PAINTER SPRING. AT BED SIDE
[2021-12-16] MEDS ORDERED: ALBU2.5V38 IH ×2 (10:03)
[2021-12-16] MEDS ORDERED: TYL2T PO (10:03)
[2021-12-16] MEDS ORDERED: LEFL20TA PO (10:03)
[2021-12-16] MEDS ORDERED: OMEP40CA21 PO (10:03)
[2021-12-16] MEDS ORDERED: ASPI-1169 PO (10:03)
[2021-12-16] MEDS ORDERED: FLUT16SP16 (10:03)
[2021-12-16] MEDS ORDERED: ALPR0.25 PO (10:03)
[2021-12-16] MEDS ORDERED: ASCO-352 PO (10:03)
[2021-12-16] MEDS ORDERED: METO25TA20 PO (10:03)
[2021-12-16] MEDS ORDERED: HYDR20TA PO (10:03)
[2021-12-16] MEDS ORDERED: CYCL30DR EACHEYE (10:03)
[2021-12-16] MEDS ORDERED: DOCU-141 PO (10:03)
[2021-12-16] MEDS ORDERED: ATOR10TA PO (10:03)
[2021-12-16] MEDS ORDERED: MONT10TA22 PO (10:03)
[2021-12-16] MEDS ORDERED: DEXT38GE12 PO (10:03)
[2021-12-16] MEDS ORDERED: BUME1TAB34 PO (10:03)
[2021-12-16] MEDS ORDERED: TAMS-12 PO (10:03)
[2021-12-16] MEDS ORDERED: LIDO30AD10 TP (10:03)
[2021-12-16] MEDS ORDERED: RIVA10TA PO (10:03)
[2021-12-16] MEDS ORDERED: ONDA4TAB5 PO (10:03)
[2021-12-16] MEDS ORDERED: MAGN400T26 PO (10:03)
[2021-12-16] MEDS ORDERED: ZINC220C6 PO (10:03)
[2021-12-16] MEDS ORDERED: INSU100V27 SQ (10:03)
[2021-12-16] MEDS ORDERED: HYDR-4303 PO (10:03)
[2021-12-16] MEDS ORDERED: CLOT15CR5 TP (10:03)
[2021-12-16] MEDS ORDERED: MULT-447 PO (10:03)
[2021-12-16] MEDS ORDERED: ACET-868 PO (10:03)
[2021-12-16] MEDS ORDERED: MELA5TAB PO (10:03)
[2021-12-16] MEDS ORDERED: ESCI10TA PO (10:03)
[2021-12-16] MEDS ORDERED: INSU100V39 SQ (10:03)
[2021-12-16] MEDS ORDERED: IPRA0.2S9 IH (10:03)
--- NOTE | 2021-12-16 10:05 | NUR ---
COVID SPECIMEN OBTAINED AND SENT TO LAB.
[2021-12-16] MEDS ORDERED: ACETAMINOPHEN ES 500 MG TABLET ONE (10:10)
[2021-12-16 10:16] LABS: BASOPHILS % (AUTO) 0.2 % (0.0-2.0); EOSINOPHILS % (AUTO) 0.8 % (0.0-6.0); HEMATOCRIT 29 % (39-51); HEMOGLOBIN 9.5 g/dL (13.5-17.5); LYMPHOCYTES # (AUTO) 0.3 K/uL (0.8-4.8); LYMPHOCYTES % (AUTO) 2.4 % (20.0-44.0); MEAN CORPUSCULAR HGB CONC 32 g/dl (31.0-36.0); MEAN CORPUSCULAR VOLUME 101 fL (80-96); MONOCYTES # (AUTO) 0.4 K/uL (0.1-1.30); MONOCYTES % (AUTO) 3.5 % (2.0-12.0); NEUTROPHILS # (AUTO) 11.7 K/uL (1.8-8.9); NEUTROPHILS % (AUTO) 93.1 % (43.0-81.0); PLATELET COUNT (AUTO) 209 K/uL (150-450); RED BLOOD CELL COUNT(AUTO) 2.93 MIL/uL (4.5-6.0); WHITE BLOOD COUNT (AUTO) 12.6 K/uL (4.3-11.0)
[2021-12-16 10:38] LABS: ALANINE AMINOTRANSFERASE 25 U/L (12-78); ALKALINE PHOSPHATASE 143 U/L (46-116); ASPARTATE AMINOTRANSFERASE 25 U/L (15-37); BILIRUBIN,DIRECT 0.3 mg/dL (0.0-0.2); BILIRUBIN,TOTAL 0.8 mg/dL (0.2-1.0); CALCIUM, SERUM 8.6 mg/dL (8.5-10.1); CARBON DIOXIDE 35 mmol/L (21-32); CHLORIDE 109 mmol/L (98-107); GLUCOSE 92 mg/dL (74-106); SODIUM SERUM 147 mmol/L (136-145); TOTAL PROTEIN, SERUM 5.8 g/dL (6.4-8.2); UREA NITROGEN, BLOOD 22 mg/dL (7-18)
[2021-12-16 10:40] LABS: POTASSIUM 2.3 mmol/L (3.5-5.1)
[2021-12-16] MEDS ORDERED: POTASSIUM CL. PREMIX PERIPHER. 200 ML ONE (10:42)
[2021-12-16] MEDS: POTASSIUM CL. PREMIX PERIPHER. 50 ML IV SCH ×4 (10:50→16:38)
[2021-12-16] MEDS ORDERED: ACETAMINOPHEN 325 MG TABLET PO PRN (11:30)
[2021-12-16] MEDS ORDERED: ALPRAZOLAM 0.25 MG TABLET PO PRN (11:30)
[2021-12-16] MEDS ORDERED: Z GUARD REMEDY 4 OZ OINT TP PRN (11:30)
[2021-12-16] MEDS ORDERED: MAGNESIUM HYDROXIDE 30 ML UDC PO PRN (11:30)
[2021-12-16] MEDS ORDERED: IV NS 0.9% 1,000 ML BAG IV ONE (11:30)
[2021-12-16] MEDS ORDERED: MAG HYDROX/AL HYDROX/SIMETH 30 ML UDC PO PRN (11:30)
--- NOTE | 2021-12-16 12:35 | NUR ---
304-T-1 PRIMARY RN AWARE.
--- NOTE | 2021-12-16 12:54 | NUR ---
REPORT GIVEN TO PATY CHAMBERLAIN
[2021-12-16] MEDS ORDERED: HYDROCORTISONE 20 MG TABLET PO SCH (13:00)
--- NOTE | 2021-12-16 13:30 | NUR ---
TELE ADMIT FROM ER AFTER REPORT RECEIVED FROM BULMARO NEWMAN. PATIENT ORIENTED TO PRIMARY RN, UNIT, ROOM, BED, AND UNIT POLICIES REGARDING PATIENT CARE AND VISITING HOURS. PATIENT NOW ON CONTINUOUS TELEMETRY MONITORING, READING ON ARRIVAL IS SR 77. PATIENT PLACED ON BEDSIDE OXYGEN, WEIGHED BY BEDSCALE AND ENCOURAGED TO CALL IF THEY NEED ANYTHING. ALL QUESTIONS AND CONCERNS ADDRESSED, PATIENT VERBALIZED UNDERSTANDING.
[2021-12-16] MEDS ORDERED: POTASSIUM CHLORIDE 20 MEQ TAB.PRT.SR PO ONE (14:00)
[2021-12-16 14:55] LABS: ABG BASE EXCESS 5.6 mmol/L; ABG OXYGEN SATURATION 97.1 % (92.0-98.5); ABG PCO2 44.6 mmHg (35.0-45.0); ABG PH 7.448 (7.350-7.450); ABG PO2 105.8 mmHg (75.0-100.0); AaDO2 91.9 mmHg; COHb 1.4 % (0.5-1.5); MetHb 0.2 % (0.0-1.5); O2Hb 95.5 % (94.0-97.0); SITE, ABG Left Radial; VENT MODE, BG 4L NC
[2021-12-16] MEDS: PIPERACILLIN /TAZOBACTAM 4.5 G in IV D5W 50 ML IV SCH ×2 (15:36→19:59)
[2021-12-16 16:00] VITALS: BP 107/46
[2021-12-16] MEDS: METOPROLOL TARTRATE 25 MG TABLET PO SCH (17:00)
[2021-12-16] MEDS: DOCUSATE SODIUM 100 MG CAPSULE PO SCH (18:32)
[2021-12-16] MEDS ORDERED: POTASSIUM CL. PREMIX PERIPHER. 50 ML IV SCH (19:30)
--- NOTE | 2021-12-16 19:31 | NUR ---
CHANGE OF SHIFT REPORT PT RESTING COMFORTABLY IN BED. NO S/S OR C/O PAIN OR DISTRESS NOTED. SIDE RAILS UP X2, CALL LIGHT LEFT WITHIN REACH. PT KEPT CLEAN, DRY, AND COMFORTABLE. NO SIGNIFICANT CHANGES SINCE ADMISSION
--- NOTE | 2021-12-16 19:44 | NUR ---
RN OPENING NOTE PATIENT AWAKE IN BED. A/OX4. NO S/S OF DISTRESS. BREATHING ON 4L NC W/O DIFFICULTY. LW #22 SL & RW #20 SL INTACT AND PATENT. SAFETY MEASURES IN PLACE: BED AT LOWEST POSITION, LOCKED, RAILS UP X3, CALL CROFT WITHIN REACH. WILL CONTINUE TO MONITOR PATIENT. Addendum: 12/16/21 at 1949 by RADHA LOGAN RN TELE MONITOR REVEALS SR 71
[2021-12-16 20:00] VITALS: BP 92/52
[2021-12-16] MEDS: ALBUTEROL FS 2.5 MG/3 ML VIAL.NEB IH SCH (20:35)
[2021-12-16] MEDS: HYDROCORTISONE 5 MG TABLET PO SCH (21:44)
[2021-12-16] MEDS: ATORVASTATIN 10 MG TABLET PO SCH (21:44)
[2021-12-16] MEDS: MONTELUKAST SODIUM (10MG) 10 MG TABLET PO SCH (21:44)
[2021-12-16] MEDS: IPRATROPIUM NEB FS 0.5 MG/2.5 ML AMPUL.NEB NEB SCH (23:32)
[2021-12-17] MEDS: VANCOMYCIN 1 GM in IV D5W 250 ML IV SCH ×2 (00:24→12:13)
[2021-12-17] MEDS: PIPERACILLIN /TAZOBACTAM 4.5 G in IV D5W 50 ML IV SCH ×4 (02:57→20:45)
[2021-12-17] MEDS: ALBUTEROL FS 2.5 MG/3 ML VIAL.NEB IH SCH ×4 (05:32→23:30)
--- NOTE | 2021-12-17 07:01 | NUR ---
RN CLOSING NOTE PATIENT ASLEEP IN BED. A/OX4. NO S/S OF DISTRESS. BREATHING ON 4L NC W/O DIFFICULTY. LW #22 SL & RW #20 SL INTACT AND PATENT. TELE MONITOR REVEALS SR 82. SAFETY MEASURES IN PLACE: BED AT LOWEST POSITION, LOCKED, RAILS UP X3, CALL CROFT WITHIN REACH. WILL ENDORSE TO NEXT SHIFT FOR VESTA.
[2021-12-17 07:25] LABS: ALBUMIN 1.8 g/dL (3.4-5.0); BILIRUBIN,TOTAL 0.7 mg/dL (0.2-1.0); CALCIUM, SERUM 8.4 mg/dL (8.5-10.1); CREATININE 0.9 mg/dL (0.6-1.3); POTASSIUM 2.9 mmol/L (3.5-5.1); TOTAL PROTEIN, SERUM 5.4 g/dL (6.4-8.2)
--- NOTE | 2021-12-17 07:30 | NUR ---
RN OPENING NOTES RECEIVED PATIENT IN BED. A/OX4. ON 4L OF O2 VIA NC, NO S/SX OF DISTRESS NOTED AT THIS TIME. LW #22 SL & RW #20 SL INTACT AND PATENT. TELE MONITOR READS SR 73 AT THIS TIME. SAFETY MEASURES IN PLACE: BED AT LOWEST POSITION, LOCKED, RAILS UP X3, CALL CROFT WITHIN REACH. WILL CONTINUE TO MONITOR PATIENT
[2021-12-17 07:38] LABS: BASOPHILS # (AUTO) 0.1 K/uL (0.0-0.2); EOSINOPHILS % (AUTO) 1.1 % (0.0-6.0); HEMATOCRIT 28 % (39-51); HEMOGLOBIN 8.8 g/dL (13.5-17.5); LYMPHOCYTES # (AUTO) 0.4 K/uL (0.8-4.8); LYMPHOCYTES % (AUTO) 3.9 % (20.0-44.0); MEAN CORPUSCULAR HGB CONC 32 g/dl (31.0-36.0); MEAN CORPUSCULAR VOLUME 104 fL (80-96); MONOCYTES # (AUTO) 0.5 K/uL (0.1-1.30); MONOCYTES % (AUTO) 4.1 % (2.0-12.0); NEUTROPHILS # (AUTO) 10.1 K/uL (1.8-8.9); NEUTROPHILS % (AUTO) 89.9 % (43.0-81.0); PLATELET COUNT (AUTO) 115 K/uL (150-450); RED BLOOD CELL COUNT(AUTO) 2.69 MIL/uL (4.5-6.0); WHITE BLOOD COUNT (AUTO) 11.2 K/uL (4.3-11.0)
[2021-12-17 08:00] VITALS: BP 140/61
[2021-12-17 08:20] LABS: THYROID STIMULATING HORMONE 0.217 uIU/mL (0.358-3.74)
[2021-12-17] MEDS: IPRATROPIUM NEB FS 0.5 MG/2.5 ML AMPUL.NEB NEB SCH ×3 (08:22→23:30)
[2021-12-17] MEDS: ASPIRIN 81 MG TAB.CHEW PO SCH (08:23)
[2021-12-17] MEDS: DOCUSATE SODIUM 100 MG CAPSULE PO SCH ×2 (08:23→17:00)
[2021-12-17] MEDS: HYDROCORTISONE 5 MG TABLET PO SCH ×4 (08:25→21:03)
[2021-12-17] MEDS: ASCORBIC ACID 500 MG TABLET PO SCH (08:26)
[2021-12-17] MEDS: TAMSULOSIN 0.4 MG CAP.SR.24H PO SCH (08:27)
[2021-12-17] MEDS: METOPROLOL TARTRATE 25 MG TABLET PO SCH ×2 (08:28→17:49)
[2021-12-17] MEDS: RIVAROXABAN 10 MG TABLET PO SCH (08:28)
[2021-12-17] MEDS: ESCITALOPRAM OXALATE (10 MG) 10 MG TABLET PO SCH (08:28)
--- NOTE | 2021-12-17 08:30 | NUR ---
RN NOTES LOOSE STOOL X1, FOUL SMELLING
[2021-12-17] MEDS ORDERED: LEFLUNOMIDE 20 MG TABLET PO SCH (09:00)
[2021-12-17] MEDS: POTASSIUM CHLORIDE 20 MEQ TAB.PRT.SR PO SCH ×5 (10:11→13:44)
--- NOTE | 2021-12-17 10:30 | NUR ---
RN NOTES LOOSE STOOL X1, FOUL SMELLING
[2021-12-17 12:13] LABS: THYROID STIMULATING HORMONE 0.217 uIU/mL (0.358-3.74)
[2021-12-17 12:28] LABS: MAGNESIUM 1.9 mg/dL (1.8-2.4)
--- NOTE | 2021-12-17 13:00 | NUR ---
RN NOTES LOOSE STOOL X1, FOUL SMELLING
--- NOTE | 2021-12-17 13:43 | NUR ---
RN NOTES COLLECTED STOOL FOR C. DIFF TESTING. SENT TO LAB
[2021-12-17 16:00] VITALS: BP 119/60
--- NOTE | 2021-12-17 17:00 | NUR ---
RN NOTES LOOSE STOOL X1
[2021-12-17] MEDS: ENSURE ENLIVE CHOC 237 ML CAN PO SCH (17:49)
--- NOTE | 2021-12-17 18:44 | NUR ---
RN NOTES URINE OUTPUT CONDOM CATH, 150ML WITH ONE URINE INCONTINENCE EPISODE UNMEASURED.
--- NOTE | 2021-12-17 19:10 | NUR ---
TELE/RN OPENING NOTE RECEIVED PATIENT RESTING IN BED. AWAKE, ALERT AND ORIENTED X 4. ABLE TO MAKE NEEDS KNOWN. DENIES PAIN AT THIS TIME. CONTINUES ON O2 4L VIA NC WITH NO S/SX OF RESPIRATORY DISTRESS NOTED. IV ACCESS TO RIGHT THUMB #24G INTACT, PATENT AND SALINE LOCKED. ENDORSED BY AM RN THAT PATIENT WILL BE FOR MIDLINE PLACEMENT D/T MULTIPLE PIV ATTEMPTS. PATIENT CONTINUES WITH CONDOM CATHETER DRAINING CLEAR, YELLOW URINE TO GRAVITY. CONTINUES ON SOFT DIET WITH NO S/SX OF ASPIRATION NOTED. TELE MONITOR IN PLACE WITH CURRENT READING SR HR 67. CALL LIGHT WITHIN REACH. ASPIRATION, FALL AND SAFETY PRECAUTIONS MAINTAINED. WILL CONTINUE TO MONITOR.
--- NOTE | 2021-12-17 19:10 | NUR ---
RN NOTES ENDORSED REPORT TO THE CANVAS WORKER NURSE FOR VESTA
--- NOTE | 2021-12-17 19:53 | NUR ---
TELE/RN NOTE ORDER PLACED FOR MIDLINE INSERTION. MEDICAL TECHNOLOGIST GENERALIST VIOLET LINDO NOTIFIED.
[2021-12-17] MEDS: MONTELUKAST SODIUM (10MG) 10 MG TABLET PO SCH (21:02)
[2021-12-17] MEDS: ATORVASTATIN 10 MG TABLET PO SCH (21:03)
[2021-12-18] VITALS (7 sets, daily range): BP systolic 136–140; BP diastolic 62–80
[2021-12-18] MEDS: PIPERACILLIN /TAZOBACTAM 4.5 G in IV D5W 50 ML IV SCH ×4 (02:30→20:44)
--- NOTE | 2021-12-18 06:10 | NUR ---
TELE/RN CLOSING NOTE PATIENT CURRENTLY SLEEPING IN BED. AWAKE, ALERT AND ORIENTED X 4. ABLE TO MAKE NEEDS KNOWN. DENIES PAIN AT THIS TIME. CONTINUES ON O2 4L VIA NC WITH NO S/SX OF RESPIRATORY DISTRESS NOTED. IV ACCESS TO RIGHT UPPER ARM MIDLINE #18G INTACT, PATENT AND SALINE LOCKED. CONTINUES ON IV ABX. CONTINUES WITH CONDOM CATHETER DRAINING CLEAR, YELLOW URINE TO GRAVITY. TOTAL OUTPUT THIS SHIFT IS 300ML. CONTINUES ON SOFT DIET WITH NO S/SX OF ASPIRATION NOTED. TELE MONITOR IN PLACE WITH CURRENT READING SR HR 77. CALL LIGHT WITHIN REACH. ASPIRATION, FALL AND SAFETY PRECAUTIONS MAINTAINED. WILL ENDORSE PLAN OF CARE TO ONCOMING SHIFT.
[2021-12-18 06:16] LABS: BASOPHILS % (AUTO) 0.3 % (0.0-2.0); EOSINOPHILS % (AUTO) 0.3 % (0.0-6.0); HEMATOCRIT 26 % (39-51); HEMOGLOBIN 8.1 g/dL (13.5-17.5); LYMPHOCYTES # (AUTO) 0.3 K/uL (0.8-4.8); LYMPHOCYTES % (AUTO) 3.5 % (20.0-44.0); MEAN CORPUSCULAR HGB CONC 32 g/dl (31.0-36.0); MEAN CORPUSCULAR VOLUME 103 fL (80-96); MONOCYTES # (AUTO) 0.4 K/uL (0.1-1.30); MONOCYTES % (AUTO) 4.2 % (2.0-12.0); NEUTROPHILS # (AUTO) 8.2 K/uL (1.8-8.9); NEUTROPHILS % (AUTO) 91.7 % (43.0-81.0); PLATELET COUNT (AUTO) 169 K/uL (150-450)
[2021-12-18 06:37] LABS: ALBUMIN 1.6 g/dL (3.4-5.0); BILIRUBIN,TOTAL 0.5 mg/dL (0.2-1.0); CALCIUM, SERUM 8.6 mg/dL (8.5-10.1); CREATININE 0.9 mg/dL (0.6-1.3); PHOSPHORUS 2.6 mg/dL (2.5-4.9); POTASSIUM 3.8 mmol/L (3.5-5.1); TOTAL PROTEIN, SERUM 5.3 g/dL (6.4-8.2)
--- NOTE | 2021-12-18 06:48 | NUR ---
TELE/RN NOTE RECEIVED CRITICAL LAB VALUE OF TROPONIN 189. RESULT TRENDING DOWN FROM PREVIOUS LAB DRAWS. MD MADISON AWARE.
--- NOTE | 2021-12-18 07:25 | NUR ---
RN OPENING NOTES RECEIVED PATIENT IN BED, AWAKE, A/O X4. DENIES PAIN AT THIS TIME. CONTINUES ON O2 4L VIA NC WITH NO S/SX OF RESPIRATORY DISTRESS NOTED. IV ACCESS TO RIGHT UPPER ARM MIDLINE #18G INTACT, PATENT AND SALINE LOCKED. CONTINUES WITH CONDOM CATHETER DRAINING CLEAR, YELLOW URINE TO GRAVITY. TELE MONITOR IN PLACE WITH CURRENT READING SR HR 75. SAFETY MEASURES IN PLACE: BED IN LOWEST POSITION, WHEELS LOCKED, SIDE RAILS UP X2, CALL LIGHT WITHIN REACH. WILL CONTINUE TO MONITOR
--- NOTE | 2021-12-18 07:36 | NUR ---
RN NOTES RECEIVED CRITICAL LAB VALUE FOR PROCALCITONIN OF 2.2
[2021-12-18] MEDS: ENSURE ENLIVE CHOC 237 ML CAN PO SCH ×2 (08:17→17:00)
[2021-12-18] MEDS: ASCORBIC ACID 500 MG TABLET PO SCH (08:18)
[2021-12-18] MEDS: TAMSULOSIN 0.4 MG CAP.SR.24H PO SCH (08:18)
[2021-12-18] MEDS: HYDROCORTISONE 5 MG TABLET PO SCH ×4 (08:18→21:00)
[2021-12-18] MEDS: ASPIRIN 81 MG TAB.CHEW PO SCH (08:18)
[2021-12-18] MEDS: ESCITALOPRAM OXALATE (10 MG) 10 MG TABLET PO SCH (08:19)
[2021-12-18] MEDS: RIVAROXABAN 10 MG TABLET PO SCH (08:21)
[2021-12-18] MEDS: DOCUSATE SODIUM 100 MG CAPSULE PO SCH ×2 (08:22→16:57)
[2021-12-18] MEDS: LEFLUNOMIDE 10 MG TABLET PO SCH (08:24)
[2021-12-18] MEDS: METOPROLOL TARTRATE 25 MG TABLET PO SCH ×2 (08:25→17:01)
[2021-12-18] MEDS: IPRATROPIUM NEB FS 0.5 MG/2.5 ML AMPUL.NEB NEB SCH ×3 (08:41→23:31)
[2021-12-18] MEDS: ALBUTEROL FS 2.5 MG/3 ML VIAL.NEB IH SCH ×3 (08:42→23:30)
[2021-12-18] MEDS ORDERED: DEXTROSE 50%-WATER 50 ML DISP.SYRIN IV PRN (09:30)
[2021-12-18 10:07] LABS: *SPE A/G RATIO 0.8 (0.7-1.7); *SPE ALPHA-1-GLOBULIN 0.4 g/dL (0.0-0.4); *SPE ALPHA-2-GLOBULIN 1.1 g/dL (0.4-1.0); *SPE BETA GLOBULIN 0.7 g/dL (0.7-1.3); *SPE M-SPIKE Not Observed g/dL (Not Observed)
--- NOTE | 2021-12-18 10:15 | NUR ---
RN NOTES PATIENT TRANSFERRED DOWN FOR CT VIA BED
[2021-12-18] MEDS ORDERED: IOHEXOL-350 100 ML VIAL IV ONE (10:38)
[2021-12-18] MEDS ORDERED: CT SWABBABLE VALVE TRANS SET 1 EA INFUS.SET MC ONE (10:38)
[2021-12-18] MEDS ORDERED: IV NS 0.9% 250 ML IV ONE (10:39)
[2021-12-18] MEDS ORDERED: METOPROLOL TARTRATE INJ 5 MG/5 ML AMPUL ONE (10:39)
[2021-12-18] MEDS ORDERED: NITROGLYCERIN 0.4 MG/TAB BOTTLE ONE (10:39)
--- NOTE | 2021-12-18 11:15 | NUR ---
RN NOTES PATIENT BACK IN ROOM. 5MG OF METOPROLOL REPORTED TO BE GIVEN DURING CT. PATIENT DENIES PAIN OR DISCOMFORT AT THIS TIME. WILL CONTINUE MONITORING PATIENT.
--- NOTE | 2021-12-18 11:24 | NUR ---
Received patient in CT Room for procedure (CTCA). Procedure explained to patient. All questions answered. Stable vitals signs. Procedure started at 1052 with no untoward reactions. Procedure completed at 1015. Tolerated well with stable vital signs.
[2021-12-18] MEDS: BLOOD SUGAR DIAGNOSTIC 1 EACH STRIP IN SCH ×3 (12:23→21:56)
--- NOTE | 2021-12-18 16:15 | NUR ---
RN NOTES PATIENT COMPLAINING OF NAUSEA AND STOMACH ACHE.
[2021-12-18] MEDS: ONDANSETRON HCL/PF 4 MG/2 ML VIAL IVP PRN (16:24)
--- NOTE | 2021-12-18 16:25 | NUR ---
RN NOTES GLORIA AND LOYDA GIVEN. WILL CONTINUE TO MONITOR.
[2021-12-18] MEDS: INSULIN REGULAR, HUMAN 100 UNIT/ML 3 ML VIAL SQ PRN ×2 (17:34→21:58)
--- NOTE | 2021-12-18 19:00 | NUR ---
RN NOTES PATIENT FOUND SITTING UP IN BED, ACTIVELY VOMITING, DARK BROWN EMESIS. WAS REPORTED BY TRANSPORTATION INSPECTOR THAT HR WAS 30-40'S BPM. RAPID RESPONSE CALLED FOR ASSISTANCE WITH PATIENT.
--- NOTE | 2021-12-18 19:07 | NUR ---
RN NOTES PATIENT IS STABLE. VSS. NO MORE EPISODES OF EMESIS. MD MADE AWARE. NO NEW ORDERS GIVEN AT THIS TIME. WILL CONTINUE TO MONITOR PATIENT AND ENDORSE ACCORDINGLY.
[2021-12-18 20:28] LABS: HEMOGLOBIN 8.3 g/dL (13.5-17.5)
--- NOTE | 2021-12-18 21:50 | NUR ---
H/H Notified Dr. Landin Re: resulted stat H/H 8.11/22. At 1900 Patient with episode of dark brown emesis large amount. Patient NPO status. Stool specimen send to lab for Stool OB. Started patient on Protonix IV. Dr. Landin ordered to keep patient NPO, another H/H in am, making sure Protonix IV BID.
[2021-12-18] MEDS: PANTOPRAZOLE 40 MG VIAL IV SCH (21:52)
[2021-12-18] MEDS: ATORVASTATIN 10 MG TABLET PO SCH (21:55)
[2021-12-18] MEDS: MONTELUKAST SODIUM (10MG) 10 MG TABLET PO SCH (21:56)
--- NOTE | 2021-12-18 22:04 | NUR ---
ACCU CHECK Episode of dark brown emesis large amount at 1900 today. Blood glucose 157mg/dl. On insulin parameters, non administered. NPO status. Dx PNA. Dr. Landin aware.
[2021-12-19] VITALS (7 sets, daily range): BP systolic 113–145; BP diastolic 57–73
[2021-12-19 00:50] LABS: OCCULT BLOOD STOOL POSITIVE (NEGATIVE)
--- NOTE | 2021-12-19 02:16 | NUR ---
STOOL OB Notified Dr. Mccoy with stool OB resulted positive, with no new orders at this time.
[2021-12-19] MEDS: PIPERACILLIN /TAZOBACTAM 4.5 G in IV D5W 50 ML IV SCH ×4 (02:20→19:44)
[2021-12-19] MEDS: BLOOD SUGAR DIAGNOSTIC 1 EACH STRIP IN SCH ×4 (05:43→22:14)
[2021-12-19] MEDS: INSULIN REGULAR, HUMAN 100 UNIT/ML 3 ML VIAL SQ PRN ×2 (05:44→22:17)
--- NOTE | 2021-12-19 07:03 | NUR ---
END OF SHIFT REPORT Patient in bed Alert Oriented x3. Oxygen support 2L NC, maintaining Oxygenation 99%, no c/o SOB. Sinus rhythm on the Tele monitor HR 72. AMERICO midline intact, on IV abx. Afebrile. Patient no episode of emesis in the last 12H, denies nausea, remains NPO. Repeat H/H am pending result. Turned and repositioned. Right heel wound, offloading. Wound consult. Patient Hx. DM. Blood glucose this morning 76mg/dl. Insulin per sliding scale non administered per parameters. Fall precaution maintained. Will endorse to oncoming RN.
--- NOTE | 2021-12-19 07:15 | NUR ---
ms rn received on bed, sleeping, not in any form of distress, respirations even unlabored,no sob noted, lungs are diminished,abdomen distended but soft, positive bowel sounds, denies pain at this time, all needs attended.
[2021-12-19 07:22] LABS: BASOPHILS % (AUTO) 0.3 % (0.0-2.0); EOSINOPHILS % (AUTO) 1.9 % (0.0-6.0); HEMATOCRIT 24 % (39-51); HEMOGLOBIN 7.8 g/dL (13.5-17.5); LYMPHOCYTES # (AUTO) 0.5 K/uL (0.8-4.8); LYMPHOCYTES % (AUTO) 6.1 % (20.0-44.0); MEAN CORPUSCULAR HGB CONC 33 g/dl (31.0-36.0); MEAN CORPUSCULAR VOLUME 102 fL (80-96); MONOCYTES # (AUTO) 0.5 K/uL (0.1-1.30); MONOCYTES % (AUTO) 6.8 % (2.0-12.0); NEUTROPHILS # (AUTO) 6.5 K/uL (1.8-8.9); NEUTROPHILS % (AUTO) 84.9 % (43.0-81.0); PLATELET COUNT (AUTO) 180 K/uL (150-450); RED BLOOD CELL COUNT(AUTO) 2.36 MIL/uL (4.5-6.0); WHITE BLOOD COUNT (AUTO) 7.7 K/uL (4.3-11.0)
[2021-12-19] MEDS: IPRATROPIUM NEB FS 0.5 MG/2.5 ML AMPUL.NEB NEB SCH ×3 (07:49→23:49)
[2021-12-19] MEDS: ALBUTEROL FS 2.5 MG/3 ML VIAL.NEB IH SCH ×3 (07:49→23:49)
[2021-12-19] MEDS: ENSURE ENLIVE CHOC 237 ML CAN PO SCH ×2 (08:00→16:38)
[2021-12-19 08:02] LABS: CALCIUM, SERUM 8.9 mg/dL (8.5-10.1); CREATININE 0.9 mg/dL (0.6-1.3); MAGNESIUM 2.1 mg/dL (1.8-2.4); PHOSPHORUS 2.8 mg/dL (2.5-4.9)
[2021-12-19 08:05] LABS: POTASSIUM 2.8 mmol/L (3.5-5.1)
[2021-12-19] MEDS: METOPROLOL TARTRATE 25 MG TABLET PO SCH ×2 (09:00→16:37)
[2021-12-19] MEDS: DOCUSATE SODIUM 100 MG CAPSULE PO SCH ×2 (09:00→16:36)
[2021-12-19] MEDS: HYDROCORTISONE 5 MG TABLET PO SCH ×4 (09:00→22:13)
[2021-12-19] MEDS: ASCORBIC ACID 500 MG TABLET PO SCH (09:00)
[2021-12-19] MEDS: ASPIRIN 81 MG TAB.CHEW PO SCH (09:00)
--- NOTE | 2021-12-19 09:00 | NUR ---
ms rn patient is npo at this time, will ask md for diet, due meds given,tolerated well.
[2021-12-19] MEDS: PANTOPRAZOLE 40 MG VIAL IV SCH ×2 (10:29→22:13)
--- NOTE | 2021-12-19 11:00 | NUR ---
ms rn was seen by sarah diallo/ orders made and carried out, patient is on clear liquids now.
[2021-12-19] MEDS: POTASSIUM CHLORIDE 20 MEQ TAB.PRT.SR PO SCH ×5 (12:56→18:20)
--- NOTE | 2021-12-19 16:00 | NUR ---
ms rn due meds given, tolerated well.
[2021-12-19] MEDS: ESCITALOPRAM OXALATE (10 MG) 10 MG TABLET PO SCH (16:36)
[2021-12-19] MEDS: TAMSULOSIN 0.4 MG CAP.SR.24H PO SCH (16:37)
[2021-12-19] MEDS: LEFLUNOMIDE 10 MG TABLET PO SCH (16:41)
--- NOTE | 2021-12-19 17:35 | NUR ---
ms rn bs -87,no coverage given, patient eating dinner, all needs attended.
--- NOTE | 2021-12-19 19:37 | NUR ---
MS/TELE/RN DR. HERNANDEZ CALLED, PER DR. HERNANDEZ, KEEP PATIENT ON CLEAR LIQUIDS.
--- NOTE | 2021-12-19 19:48 | NUR ---
MS/TELE/RN PATIENT IS IN BED APPEARS SLEEPING, BREATHING EVEN AND UNLABORED, NO SIGNS OF DISTRESS NOTED, CALL LIGHT IN REACH, FALL PRECAUTIONS PER PROTOCOL IMPLEMENTED, WILL MONITOR .
[2021-12-19] MEDS ORDERED: IV D5W 1,000 ML IV PRN (20:00)
[2021-12-19] MEDS ORDERED: IOHEXOL-300 100 ML VIAL IV ONE (20:33)
[2021-12-19] MEDS: MONTELUKAST SODIUM (10MG) 10 MG TABLET PO SCH (22:14)
[2021-12-19] MEDS: ATORVASTATIN 10 MG TABLET PO SCH (22:14)
[2021-12-20] MEDS: PIPERACILLIN /TAZOBACTAM 4.5 G in IV D5W 50 ML IV SCH ×3 (02:12→14:59)
[2021-12-20 04:44] VITALS: BP 128/67
--- NOTE | 2021-12-20 06:09 | NUR ---
MS/TELE/RN PATIENT IS STILL SLEEPING AT THIS TIME, BREATHING EVEN AND UNLABORED, IVF INFUSING, CALL LIGHT IN REACH, ALL NEEDS ATTENDED AT THIS TIME, WILL CONTINUE TO MONITOR.
[2021-12-20] MEDS: BLOOD SUGAR DIAGNOSTIC 1 EACH STRIP IN SCH ×4 (06:25→21:47)
[2021-12-20 06:27] LABS: BASOPHILS % (AUTO) 0.2 % (0.0-2.0); EOSINOPHILS % (AUTO) 0.3 % (0.0-6.0); HEMATOCRIT 23 % (39-51); HEMOGLOBIN 7.2 g/dL (13.5-17.5); LYMPHOCYTES # (AUTO) 0.2 K/uL (0.8-4.8); LYMPHOCYTES % (AUTO) 2.5 % (20.0-44.0); MEAN CORPUSCULAR HGB CONC 32 g/dl (31.0-36.0); MEAN CORPUSCULAR VOLUME 102 fL (80-96); MONOCYTES # (AUTO) 0.5 K/uL (0.1-1.30); MONOCYTES % (AUTO) 6.3 % (2.0-12.0); NEUTROPHILS # (AUTO) 7.2 K/uL (1.8-8.9); NEUTROPHILS % (AUTO) 90.7 % (43.0-81.0); PLATELET COUNT (AUTO) 168 K/uL (150-450); RED BLOOD CELL COUNT(AUTO) 2.21 MIL/uL (4.5-6.0)
[2021-12-20 06:40] LABS: ALANINE AMINOTRANSFERASE 14 U/L (12-78); ALBUMIN 1.6 g/dL (3.4-5.0); ALKALINE PHOSPHATASE 101 U/L (46-116); ASPARTATE AMINOTRANSFERASE 17 U/L (15-37); BILIRUBIN,TOTAL 0.4 mg/dL (0.2-1.0); CALCIUM, SERUM 8.4 mg/dL (8.5-10.1); CARBON DIOXIDE 32 mmol/L (21-32); CHLORIDE 110 mmol/L (98-107); GLUCOSE 119 mg/dL (74-106); PHOSPHORUS 2.9 mg/dL (2.5-4.9); POTASSIUM 3.4 mmol/L (3.5-5.1); SODIUM SERUM 145 mmol/L (136-145); TOTAL PROTEIN, SERUM 4.9 g/dL (6.4-8.2); UREA NITROGEN, BLOOD 15 mg/dL (7-18)
--- NOTE | 2021-12-20 07:05 | NUR ---
MS/TELE/RN DR. HERNANDEZ CALLED WITH ORDER TO PUT PATIENT NPO HE WILL DO EGD TODAY. DR. HERNANDEZ WILL ENTER THE EGD ORDER.
[2021-12-20] MEDS: IPRATROPIUM NEB FS 0.5 MG/2.5 ML AMPUL.NEB NEB SCH ×2 (07:45→16:20)
[2021-12-20] MEDS: ALBUTEROL FS 2.5 MG/3 ML VIAL.NEB IH SCH ×2 (07:45→16:20)
--- NOTE | 2021-12-20 07:55 | NUR ---
RN OPENING NOTES Patient seen comfortably lying in bed, no shortness of breath, no apparent distress noted, breathing even and unlabored, denies any pain or discomfort at this time, no grimacing. Call light left within reach, safety precautions in place, brakes locked, side rails up X 2, will monitor closely for any changes.
[2021-12-20 08:00] VITALS: BP 148/65
[2021-12-20] MEDS ORDERED: POTASSIUM CHLORIDE 20 MEQ TAB.PRT.SR PO SCH (08:00)
[2021-12-20] MEDS: ENSURE ENLIVE CHOC 237 ML CAN PO SCH ×2 (08:00→17:42)
[2021-12-20] MEDS: POTASSIUM CL. PREMIX PERIPHER. 50 ML IV SCH ×4 (08:23→13:39)
[2021-12-20] MEDS: PANTOPRAZOLE 40 MG VIAL IV SCH ×2 (08:23→21:46)
[2021-12-20] MEDS: ASPIRIN 81 MG TAB.CHEW PO SCH (09:00)
--- NOTE | 2021-12-20 09:16 | NUR ---
WOUND CARE CONSULT: PT PRESENTS WITH RASH TO BUTTOCKS AND LEFT PLANTAR FOOT CALLUS, RT FOOT DRY DRESSING (HEEL WOUND NOTED IN ADMISSION PHOTO). DR HAIRSTON NOTIFIED OF PT ROOM NUMBER FOR DPM CONSULT. RECOMMENDATIONS MADE FOR SKIN PROTECTION. DISCUSSED WITH NURSING STAFF. PT INCONTINENT OF STOOL. MD IN AGREEMENT WITH PLAN OF CARE.
--- NOTE | 2021-12-20 09:17 | NUR ---
Patient has an order for Esophagogastroduodenoscopy, consents for the procedure obtained from patient, verbalized understanding of the procedure, reminded patient that he cannot have any food or water verbalized understanding and gratitude. Consents signed by patient and are filed in patients chart.
[2021-12-20] MEDS ORDERED: DEXAMETHASONE SOD PHOSPHATE 10 MG/ML VIAL ONE (09:50)
--- NOTE | 2021-12-20 10:05 | NUR ---
Patient left for surgery around 10:05am, remained NPO since 0707am, denies any abdominal pain, no apparent distress notes, no s/s of hypo/hyperglycemia, no change in level of consciousness, no tremors, denies any pain or discomfort, consents and checklist present in patients chart. Patient not wearing any jewelry, no watch.
[2021-12-20] MEDS ORDERED: POTASSIUM CL. PREMIX PERIPHER. 50 ML IV SCH (10:30)
[2021-12-20] MEDS ORDERED: hydrALAZINE HCL IV 20 MG VIAL ONE (11:05)
--- NOTE | 2021-12-20 11:51 | NUR ---
Patient came back around 1151am to unit, stable condition, no apparent distress noted, denies any pain or discomfort at this time, no shortness of breath, afebrile, no respiratory distress, vital signs within normal limits. Patient came back with new orders noted and carried out by PACU nurse. Call light left within reach, will monitor closely for any changes.
[2021-12-20 12:00] VITALS: BP 147/63
[2021-12-20] MEDS: METOPROLOL TARTRATE 25 MG TABLET PO SCH ×2 (12:36→17:42)
[2021-12-20] MEDS: LEFLUNOMIDE 10 MG TABLET PO SCH (12:36)
[2021-12-20] MEDS: HYDROCORTISONE 5 MG TABLET PO SCH ×4 (12:36→21:47)
[2021-12-20] MEDS: ONDANSETRON HCL/PF 4 MG/2 ML VIAL IVP PRN (12:36)
[2021-12-20] MEDS: TAMSULOSIN 0.4 MG CAP.SR.24H PO SCH (12:37)
[2021-12-20] MEDS: ASCORBIC ACID 500 MG TABLET PO SCH (12:37)
[2021-12-20] MEDS: ESCITALOPRAM OXALATE (10 MG) 10 MG TABLET PO SCH (12:37)
[2021-12-20] MEDS: DOCUSATE SODIUM 100 MG CAPSULE PO SCH ×2 (12:37→17:42)
[2021-12-20] MEDS ORDERED: ANESTHESIA TRAY IN PYXIS 1 EA TRAY MC ONE (13:40)
--- NOTE | 2021-12-20 17:20 | NUR ---
Patient has an order for left heart cardiac catheterization, consent for the procedure obtained from patient, verbalized understanding of the procedure, verbalized understanding and gratitude. Consents signed by patient and are filed in patients chart.
[2021-12-20] MEDS: INSULIN REGULAR, HUMAN 100 UNIT/ML 3 ML VIAL SQ PRN ×2 (17:24→21:52)
[2021-12-20] MEDS: CLOTRIMAZOLE 1% 15 GM TUBE TP SCH (17:42)
--- NOTE | 2021-12-20 18:36 | NUR ---
RN CLOSING NOTES Patient lying in bed, no shortness of breath, respirations even and unlabored, no dizziness, no palpitations, no chest pain, denies any pain or discomfort, no grimacing. All due medications given per MD order and tolerated well. Anti-anxiety medication and anti-nausea medication given as needed when non pharmacological measures ineffective. Patient S/P EGD with biopsy today, tolerated procedure well, no bleeding noted during shift, no hematuria, no unusual bruising, no bleeding gums, no blood in stool. Insulin given per sliding scale per MD order, tolerated well, no s/s of hypo or hyperglycemia, no tremors, no change in level of consciousness. Patient has right upper arm midline patent, intact and flushing well, site covered with clean, intact and dry dressings and no swelling, no redness, no c/o pain or discomfort at site. Kept clean and dry, call light left within reach, all needs attended, aspiration precautions observed at all times, kept head of bed elevated, safety precautions in place, frequent visual checks rendered, brakes locked, side rails up X 2, will endorse to next shift for continuity of care.
[2021-12-20 20:06] VITALS: BP 135/66
[2021-12-20] MEDS: CEFTRIAXONE 1 G in IV D5W 50 ML IV SCH (21:07)
[2021-12-20] MEDS: MONTELUKAST SODIUM (10MG) 10 MG TABLET PO SCH (21:47)
[2021-12-20] MEDS: ATORVASTATIN 10 MG TABLET PO SCH (21:47)
[2021-12-21] VITALS: BP 117/63
[2021-12-21] MEDS: IPRATROPIUM NEB FS 0.5 MG/2.5 ML AMPUL.NEB NEB SCH ×3 (02:23→15:42)
[2021-12-21] MEDS: ALBUTEROL FS 2.5 MG/3 ML VIAL.NEB IH SCH ×3 (02:23→15:42)
[2021-12-21 04:28] VITALS: BP 130/65
--- NOTE | 2021-12-21 04:30 | NUR ---
MS/TELE/RN AT INITIAL SHIFT ROUND, PATIENT WAS IN BED SLEEPING, BREATHING EVEN AND UNLABORED. AT 21:47, DUE MEDS WERE GIVEN PATIENT WAS FULLY AWAKE. NURSING CARE DONE WITH THE PATIENT, BOWEL MOVEMENT NOTED, CLEANED AND MADE DRY, TOTAL LINEN CHANGE RENDERED, REPOSITIONED TO COMFORT. AT PRESENT, PATIENT IS SLEEPING, NO CHANGE IN CONDITION. CALL LIGHT IN REACH. WILL MONITO.
[2021-12-21 06:11] LABS: BASOPHILS % (AUTO) 0.1 % (0.0-2.0); EOSINOPHILS % (AUTO) 0.1 % (0.0-6.0); HEMATOCRIT 23 % (39-51); HEMOGLOBIN 7.5 g/dL (13.5-17.5); LYMPHOCYTES # (AUTO) 0.2 K/uL (0.8-4.8); LYMPHOCYTES % (AUTO) 2.1 % (20.0-44.0); MEAN CORPUSCULAR HGB CONC 32 g/dl (31.0-36.0); MEAN CORPUSCULAR VOLUME 103 fL (80-96); MONOCYTES # (AUTO) 0.5 K/uL (0.1-1.30); MONOCYTES % (AUTO) 5.1 % (2.0-12.0); NEUTROPHILS # (AUTO) 8.3 K/uL (1.8-8.9); NEUTROPHILS % (AUTO) 92.6 % (43.0-81.0); PLATELET COUNT (AUTO) 158 K/uL (150-450); RED BLOOD CELL COUNT(AUTO) 2.26 MIL/uL (4.5-6.0)
[2021-12-21 06:23] LABS: CALCIUM, SERUM 8.5 mg/dL (8.5-10.1); CARBON DIOXIDE 28 mmol/L (21-32); CHLORIDE 112 mmol/L (98-107); GLUCOSE 134 mg/dL (74-106); MAGNESIUM 2.1 mg/dL (1.8-2.4); POTASSIUM 4.1 mmol/L (3.5-5.1); SODIUM SERUM 146 mmol/L (136-145); UREA NITROGEN, BLOOD 17 mg/dL (7-18)
--- NOTE | 2021-12-21 06:25 | NUR ---
MS/TELE/RN PATIENT IS STILL SLEEPING AT THIS TIME, BREATHING EVEN AND UNLABORED, NO SIGNS OF DISTRESS NOTED, CALL LIGHT IN REACH, ALL NEEDS ATTENDED AT THIS TIME, WILL CONTINUE TO MONITOR.
[2021-12-21] MEDS: BLOOD SUGAR DIAGNOSTIC 1 EACH STRIP IN SCH ×4 (06:41→21:52)
--- NOTE | 2021-12-21 06:42 | NUR ---
MS/TELE/RN PATIENT IS AWAKE AND ALERT, NO C/O PAIN, NO SIGNS OF DISTRESS NOTED, ALL NEEDS ATTENDED AT THIS TIME, WILL CONTINUE TO MONITOR.
--- NOTE | 2021-12-21 07:30 | NUR ---
ms rn received on bed, awake,alert,oriented x3,not in any form of distress, respirations even and unlabored,no sob noted, condom cath intact w/ yellowish urine output,deana pain at this time,all needs attended.
[2021-12-21 08:00] VITALS: BP 146/69
[2021-12-21] MEDS: ENSURE ENLIVE CHOC 237 ML CAN PO SCH ×2 (08:00→17:00)
[2021-12-21] MEDS: DOCUSATE SODIUM 100 MG CAPSULE PO SCH ×2 (09:00→17:00)
--- NOTE | 2021-12-21 09:00 | NUR ---
ms rn due meds given, tolerated well.
[2021-12-21] MEDS: PANTOPRAZOLE 40 MG VIAL IV SCH ×2 (10:58→21:52)
[2021-12-21] MEDS: ASPIRIN 81 MG TAB.CHEW PO SCH (10:59)
[2021-12-21] MEDS: TAMSULOSIN 0.4 MG CAP.SR.24H PO SCH (10:59)
[2021-12-21] MEDS: ASCORBIC ACID 500 MG TABLET PO SCH (10:59)
[2021-12-21] MEDS: ESCITALOPRAM OXALATE (10 MG) 10 MG TABLET PO SCH (10:59)
[2021-12-21] MEDS: METOPROLOL TARTRATE 25 MG TABLET PO SCH ×2 (11:00→18:33)
[2021-12-21] MEDS: LEFLUNOMIDE 10 MG TABLET PO SCH (11:05)
[2021-12-21] MEDS: HYDROCORTISONE 5 MG TABLET PO SCH ×4 (11:05→21:52)
[2021-12-21] MEDS: CLOTRIMAZOLE 1% 15 GM TUBE TP SCH ×2 (13:42→18:34)
[2021-12-21 16:00] VITALS: BP 142/61
--- NOTE | 2021-12-21 17:00 | NUR ---
ms rn on bed, all needs attended.
[2021-12-21] MEDS ORDERED: HYDROCODONE/APAP 5/325MG TABLET PO PRN (18:30)
--- NOTE | 2021-12-21 18:46 | NUR ---
ms rn bs - 129 - no coverage noted,all needs attended.
[2021-12-21 20:00] VITALS: BP 128/57
[2021-12-21] MEDS: CEFTRIAXONE 1 G in IV D5W 50 ML IV SCH (20:38)
[2021-12-21] MEDS: ATORVASTATIN 10 MG TABLET PO SCH (21:52)
[2021-12-21] MEDS: MONTELUKAST SODIUM (10MG) 10 MG TABLET PO SCH (21:52)
--- NOTE | 2021-12-21 22:01 | NUR ---
MS/TELE/RN PATIENT IS AWAKE, ALERT, AND ORIENTED, COMFORTABLE, NO SIGNS OF DISTRESS NOTED, HS MEDS ADMINISTERED, ALL NEEDS ATTENDED. WILL MONITOR.
[2021-12-22] VITALS (7 sets, daily range): BP systolic 123–140; BP diastolic 58–68
[2021-12-22] MEDS: ALBUTEROL FS 2.5 MG/3 ML VIAL.NEB IH SCH ×3 (00:13→13:52)
[2021-12-22] MEDS: IPRATROPIUM NEB FS 0.5 MG/2.5 ML AMPUL.NEB NEB SCH ×3 (00:13→13:52)
--- NOTE | 2021-12-22 03:32 | NUR ---
MS/TELE/RN PATIENT IS SLEEPING, BREATHING EVEN AND UNLABORED, NO DISTRESS NOTED, CALL LIGHT IN REACH. WILL CONTINUE TO MONITOR.
--- NOTE | 2021-12-22 06:44 | NUR ---
MS/TELE/RN URINE OUTPUT CONDOM CATH, 150 MLS, NOTIFIED MARY IGLESIAS NP, PER MARY IGLESIAS, JUST MONITOR. NO FURTHER ORDERS RECEIVED.
[2021-12-22] MEDS: BLOOD SUGAR DIAGNOSTIC 1 EACH STRIP IN SCH ×4 (06:48→21:43)
[2021-12-22] MEDS: INSULIN REGULAR, HUMAN 100 UNIT/ML 3 ML VIAL SQ PRN (06:48)
--- NOTE | 2021-12-22 07:00 | NUR ---
VENDOR ANALYST NOTES PATIENT LAYING IN BED, A/O X 4, ABLE TO MAKE NEEDS KNOWN. TOLERATING WELL ON 3 LPM O2 VIA CANNULA WITH NO S/S RESPIRATORY DISTRESS. NO COMPLAINTS OF PAIN OR DISCOMFORT AT THIS TIME. TELE MONITOR READING NSR 76. CONDOM CATHETER IN PLACE DRAINING CLEAR YELLOW URINE TO GRAVITY. AMERICO MIDLINE INTACT, CLEAN, AND FLUSHING WELL WITH NS @ 10 ML/HR. SAFETY MEASURES IN PLACE: BED IN LOWEST LOCKED POSITION, SIDE RAILS UP X 2, CALL LIGHT WITHIN REACH. WILL CONTINUE TO MONITOR.
[2021-12-22 07:21] LABS: BASOPHILS % (AUTO) 0.2 % (0.0-2.0); EOSINOPHILS % (AUTO) 0.7 % (0.0-6.0); HEMATOCRIT 24 % (39-51); HEMOGLOBIN 7.6 g/dL (13.5-17.5); LYMPHOCYTES # (AUTO) 0.2 K/uL (0.8-4.8); MEAN CORPUSCULAR HGB CONC 32 g/dl (31.0-36.0); MEAN CORPUSCULAR VOLUME 104 fL (80-96); MONOCYTES # (AUTO) 0.5 K/uL (0.1-1.30); MONOCYTES % (AUTO) 5.5 % (2.0-12.0); NEUTROPHILS # (AUTO) 7.6 K/uL (1.8-8.9); NEUTROPHILS % (AUTO) 91.6 % (43.0-81.0); PLATELET COUNT (AUTO) 208 K/uL (150-450); RED BLOOD CELL COUNT(AUTO) 2.31 MIL/uL (4.5-6.0); WHITE BLOOD COUNT (AUTO) 8.3 K/uL (4.3-11.0)
[2021-12-22] MEDS: ENSURE ENLIVE CHOC 237 ML CAN PO SCH ×2 (07:36→16:57)
[2021-12-22 07:44] LABS: CALCIUM, SERUM 8.6 mg/dL (8.5-10.1); CREATININE 0.9 mg/dL (0.6-1.3)
[2021-12-22] MEDS: HYDROCORTISONE 5 MG TABLET PO SCH ×4 (08:45→21:43)
[2021-12-22] MEDS: ESCITALOPRAM OXALATE (10 MG) 10 MG TABLET PO SCH (08:45)
[2021-12-22] MEDS: ASPIRIN 81 MG TAB.CHEW PO SCH (08:46)
[2021-12-22] MEDS: TAMSULOSIN 0.4 MG CAP.SR.24H PO SCH (08:46)
[2021-12-22] MEDS: PANTOPRAZOLE 40 MG VIAL IV SCH ×2 (08:46→21:42)
[2021-12-22] MEDS: DOCUSATE SODIUM 100 MG CAPSULE PO SCH ×2 (08:46→16:56)
[2021-12-22] MEDS: METOPROLOL TARTRATE 25 MG TABLET PO SCH ×2 (08:47→17:13)
[2021-12-22] MEDS: ASCORBIC ACID 500 MG TABLET PO SCH (08:47)
[2021-12-22] MEDS: LEFLUNOMIDE 10 MG TABLET PO SCH (08:49)
[2021-12-22] MEDS: CLOTRIMAZOLE 1% 15 GM TUBE TP SCH ×2 (08:50→16:57)
--- NOTE | 2021-12-22 19:00 | NUR ---
PRODUCTION OPERATIONS ENGINEER CLOSING NOTES PATIENT LAYING IN BED, A/O X 4, ABLE TO MAKE NEEDS KNOWN. TOLERATING WELL ON 3 LPM O2 VIA CANNULA WITH NO S/S RESPIRATORY DISTRESS. NO COMPLAINTS OF PAIN OR DISCOMFORT AT THIS TIME. TELE MONITOR READING NSR 80. CONDOM CATHETER IN PLACE DRAINING CLEAR YELLOW URINE TO GRAVITY. AMERICO MIDLINE INTACT, CLEAN, AND FLUSHING WELL WITH NS @ 10 ML/HR. SAFETY MEASURES IN PLACE: BED IN LOWEST LOCKED POSITION, SIDE RAILS UP X 2, CALL LIGHT WITHIN REACH. WILL ENDORSE TO DELINQUENT ACCOUNT CLERK FOR VESTA.
--- NOTE | 2021-12-22 19:10 | NUR ---
TELE/RN OPENING NOTE RECEIVED PATIENT SLEEPING IN BED. ALERT AND ORIENTED X 3. ABLE TO MAKE NEEDS KNOWN. DENIES PAIN AT THIS TIME. CONTINUES ON O2 3L VIA NC WITH NO S/SX OF RESPIRATORY DISTRESS NOTED. IV ACCESS TO RIGHT UPPER ARM MIDLINE #18G INTACT, PATENT AND SALINE LOCKED. TELE MONITOR ON WITH CURRENT READING SR. CONDOM CATH IN PLACE DRAINING CLEAR, YELLOW URINE TO GRAVITY. CALL LIGHT WITHIN REACH. ASPIRATION, FALL AND SAFETY PRECAUTIONS MAINTAINED. WILL CONTINUE TO MONITOR.
--- NOTE | 2021-12-22 21:30 | NUR ---
TELE/RN NOTE BLOOD TRANSFUSION STARTED FOR 1 UNIT PRBC. VERIFIED WITH RN MATT. EXPLAINED ADVERSE REACTIONS TO PATIENT AND TO NOTIFY RN IF ANY OCCUR. VS TAKEN AND DOCUMENTED ON TRANSFUSION FLOW SHEET. PRBC RUNNING THROUGH RIGHT UPPER ARM MIDLINE @ 100ML/HR. WILL CONTINUE TO MONITOR.
[2021-12-22] MEDS: MONTELUKAST SODIUM (10MG) 10 MG TABLET PO SCH (21:43)
[2021-12-22] MEDS: ATORVASTATIN 10 MG TABLET PO SCH (21:43)
--- NOTE | 2021-12-22 23:50 | NUR ---
TELE/RN NOTE PATIENT COMPLETED 1 UNIT PRBC WITH NO ADVERSE REACTIONS NOTED. NO S/SX OF BLEEDING NOTED. [facility] LAB DRAW SCHEDULED FOR AM. WILL CONTINUE TO MONITOR.
--- NOTE | 2021-12-22 23:50 | NUR ---
TELE/RN NOTE PATIENTS BLOOD SUGAR TONIGHT IS 167. PATIENT IS NPO FOR PLANNED PROCEDURE IN AM. HOLDING INSULINS SLIDING SCALE.
[2021-12-23] VITALS: BP 131/65
[2021-12-23] MEDS: IPRATROPIUM NEB FS 0.5 MG/2.5 ML AMPUL.NEB NEB SCH ×3 (00:09→15:30)
[2021-12-23] MEDS: ALBUTEROL FS 2.5 MG/3 ML VIAL.NEB IH SCH ×3 (00:09→15:30)
[2021-12-23 04:00] VITALS: BP 152/76
--- NOTE | 2021-12-23 06:10 | NUR ---
TELE/RN CLOSING NOTE PATIENT CURRENTLY RESTING IN BED. AWAKE, ALERT AND ORIENTED X 3. ABLE TO MAKE NEEDS KNOWN. DENIES PAIN AT THIS TIME. CONTINUES ON O2 2L VIA NC WITH NO S/SX OF RESPIRATORY DISTRESS NOTED. IV ACCESS TO RIGHT UPPER ARM MIDLINE #18G INTACT, PATENT AND SALINE LOCKED. TELE MONITOR ON WITH CURRENT READING SR. CONDOM CATH IN PLACE DRAINING CLEAR, YELLOW URINE TO GRAVITY. PATIENT HAS BEEN NPO SINCE MIDNIGHT FOR PLANNED CARDIAC CATH PROCEDURE TODAY. CONSENTS IN CHART. CALL LIGHT WITHIN REACH. ASPIRATION, FALL AND SAFETY PRECAUTIONS MAINTAINED. WILL ENDORSE PLAN OF CARE TO ONCOMING SHIFT.
[2021-12-23] MEDS: BLOOD SUGAR DIAGNOSTIC 1 EACH STRIP IN SCH ×4 (07:10→22:29)
[2021-12-23 07:24] LABS: BASOPHILS % (AUTO) 0.1 % (0.0-2.0); EOSINOPHILS % (AUTO) 0.5 % (0.0-6.0); HEMATOCRIT 26 % (39-51); HEMOGLOBIN 8.5 g/dL (13.5-17.5); LYMPHOCYTES # (AUTO) 0.2 K/uL (0.8-4.8); LYMPHOCYTES % (AUTO) 3.8 % (20.0-44.0); MEAN CORPUSCULAR HGB CONC 33 g/dl (31.0-36.0); MEAN CORPUSCULAR VOLUME 99 fL (80-96); MONOCYTES # (AUTO) 0.5 K/uL (0.1-1.30); MONOCYTES % (AUTO) 7.1 % (2.0-12.0); NEUTROPHILS # (AUTO) 5.7 K/uL (1.8-8.9); NEUTROPHILS % (AUTO) 88.5 % (43.0-81.0); PLATELET COUNT (AUTO) 193 K/uL (150-450); RED BLOOD CELL COUNT(AUTO) 2.59 MIL/uL (4.5-6.0); WHITE BLOOD COUNT (AUTO) 6.4 K/uL (4.3-11.0)
--- NOTE | 2021-12-23 07:30 | NUR ---
SQUASH CENTRE MANAGER OPENING NOTE RECEIVED PATIENT RESTING ON BED, ALERT AND ORIENTED X4. ABLE TO MAKE NEEDS KNOWN. WITH NO COMPLAINTS OF PAIN AT THIS TIME. ON O2 AT 2L VIA NC WITH NO S/SX OF RESPIRATORY DISTRESS NOTED. WITH IV ACCESS AT RIGHT UPPER ARM MIDLINE G18 SALINE LOCKED, PATENT AND INTACT. ON TELE MONITOR CURRENTLY READING SINUS RHYTHM AT 85BPM. WITH CONDOM CATH IN PLACE DRAINING CLEAR, YELLOW URINE. SAFETY MEASURES IN PLACED. CALL LIGHT WITHIN REACH. BED ON LOWEST LOCKED POSITION, SIDE RAILS UP X2. WILL CONTINUE TO MONITOR.
[2021-12-23 07:49] LABS: ALBUMIN 1.8 g/dL (3.4-5.0); BILIRUBIN,TOTAL 0.3 mg/dL (0.2-1.0); CALCIUM, SERUM 8.9 mg/dL (8.5-10.1); CREATININE 0.9 mg/dL (0.6-1.3); MAGNESIUM 2.1 mg/dL (1.8-2.4); PHOSPHORUS 2.7 mg/dL (2.5-4.9); POTASSIUM 3.8 mmol/L (3.5-5.1); TOTAL PROTEIN, SERUM 5.2 g/dL (6.4-8.2)
[2021-12-23 08:00] VITALS: BP 170/78
--- NOTE | 2021-12-23 08:00 | NUR ---
RN NOTE PATIENT REFUSED FOR CARDIAC CATH. WILL REPORT TO DR. SHANKAR TO SPEAK WITH THE PATIENT.
[2021-12-23] MEDS: ASCORBIC ACID 500 MG TABLET PO SCH (08:39)
[2021-12-23] MEDS: DOCUSATE SODIUM 100 MG CAPSULE PO SCH ×2 (08:39→17:06)
[2021-12-23] MEDS: PANTOPRAZOLE 40 MG VIAL IV SCH ×2 (08:39→21:49)
[2021-12-23] MEDS: TAMSULOSIN 0.4 MG CAP.SR.24H PO SCH (08:39)
[2021-12-23] MEDS: METOPROLOL TARTRATE 25 MG TABLET PO SCH ×2 (08:39→17:06)
[2021-12-23] MEDS: ESCITALOPRAM OXALATE (10 MG) 10 MG TABLET PO SCH (08:39)
[2021-12-23] MEDS: HYDROCORTISONE 5 MG TABLET PO SCH ×4 (08:40→21:49)
[2021-12-23] MEDS: ASPIRIN 81 MG TAB.CHEW PO SCH (08:53)
[2021-12-23] MEDS: LEFLUNOMIDE 10 MG TABLET PO SCH (08:54)
[2021-12-23] MEDS: ENSURE ENLIVE CHOC 237 ML CAN PO SCH ×2 (09:42→17:07)
[2021-12-23] MEDS: CLOTRIMAZOLE 1% 15 GM TUBE TP SCH ×2 (09:42→17:07)
--- NOTE | 2021-12-23 10:00 | NUR ---
RN NOTE DR. SHANKAR SPOKE WITH THE PATIENT AND PATIENT AGREED TO DO CARDIAC CATH AT 3PM.
[2021-12-23 12:00] VITALS: BP 150/64
[2021-12-23] MEDS ORDERED: NTG 25 MG/D5W 250 ML BTL 25 MG/250 ML BTL IV ONE (14:37)
--- NOTE | 2021-12-23 15:40 | NUR ---
RN NOTE PATIENT IS BACK FROM CARDIAC CATHETERIZATION ENDORSED BY PATY ARNDT AND PATY SMITH WITH TR BAND WITH NO SIGNS OF BLEEDING. PATIENT IS AWAKE AND A/O X4. WITH STABLE VITAL SIGNS. WILL REMOVE 3CC OF AIR EVERY 15MINS STARTING AT 1710. WILL MONITOR PATIENT.
--- NOTE | 2021-12-23 15:42 | NUR ---
PATIENT WENT FOR CATH SCAN. RN AWARED. Addendum: 12/23/21 at 1543 by ERMELINDA CHOPRA RT Amended: Links added.
--- NOTE | 2021-12-23 17:10 | NUR ---
RN NOTE REMOVED 3CC OF AIR FROM TR BAND. PATIENT IS AWAKE AND A/O X4. WITH NO SIGNS OF BLEEDING. WITH STABLE V/S.
--- NOTE | 2021-12-23 17:25 | NUR ---
RN NOTE REMOVED 3CC OF AIR FROM TR BAND. PATIENT IS AWAKE AND A/O X4. WITH NO SIGNS OF BLEEDING. WITH STABLE V/S.
--- NOTE | 2021-12-23 17:40 | NUR ---
RN NOTE REMOVED 3CC OF AIR FROM TR BAND. PATIENT IS AWAKE AND A/O X4. WITH NO SIGNS OF BLEEDING. WITH STABLE V/S.
--- NOTE | 2021-12-23 18:00 | NUR ---
RN NOTE REMOVED 3CC OF AIR FROM TR BAND. PATIENT IS AWAKE AND A/O X4. WITH NO SIGNS OF BLEEDING. WITH STABLE V/S.
--- NOTE | 2021-12-23 19:25 | NUR ---
SPEECH COMMUNICATION PROFESSOR CLOSING NOTES PATIENT RESTING ON BED, ALERT AND ORIENTED X4. ABLE TO MAKE NEEDS KNOWN. WITH NO COMPLAINTS OF PAIN AT THIS TIME. ON O2 AT 2L VIA NC WITH NO S/SX OF RESPIRATORY DISTRESS NOTED. WITH IV ACCESS AT RIGHT UPPER ARM MIDLINE G18 SALINE LOCKED, PATENT AND INTACT. S/P CARDIAC CATHETERIZATION WITH NO SIGNS OF BLEEDING AND WITH STABLE VITAL SIGNS AND O2 SATURATION. ON TELE MONITOR CURRENTLY READING SINUS RHYTHM AT 70BPM. WITH CONDOM CATH IN PLACE DRAINING CLEAR, YELLOW URINE. SAFETY MEASURES IN PLACED. CALL LIGHT WITHIN REACH. BED ON LOWEST LOCKED POSITION, SIDE RAILS UP X2. WILL ENDORSE TO NEXT SHIFT FOR VESTA.
--- NOTE | 2021-12-23 19:30 | NUR ---
RN OPENING NOTE PATIENT IN BED, EYES CLOSED, EASILY AWAKENED WITH VERBAL AND TOUCH STIMULI. PATIENT IS ABLE TO MAKE NEEDS KNOWN, A/O X 3. PATIENT ON 2LPM VIA NC, TOLERATING WELL. PATIENT ON TELE MONITOR READS SR 71 BPM. PATIENT CURRENTLY HAS A CONDOM CATHETER IN PLACE DRAINING VIA GRAVITY. PATIENT HAS A A AMERICO MIDLINE SALINE LOCKED AT THIS TIME. FLUSHING WELL. PATIENT DOES NOT REPORT ANY PAIN AT THIS TIME. SAFETY MEASURES IN PLACE: BED LOCKED AND IN LOWEST POSITION, CALL LIGHT WITHIN REACH, SIDE RAILS UP. WILL MONITOR PATIENT CLOSELY.
[2021-12-23 20:00] VITALS: BP 125/58
[2021-12-23] MEDS: ATORVASTATIN 10 MG TABLET PO SCH (21:49)
[2021-12-23] MEDS: MONTELUKAST SODIUM (10MG) 10 MG TABLET PO SCH (21:49)
--- NOTE | 2021-12-23 22:30 | NUR ---
BS 136 MG/DL, 2 UNITS INSULIN COVERAGE GIVEN. SNACKS PROVIDED. WILL MONITOR FOR HYPOGLYCEMIA.
[2021-12-23] MEDS: INSULIN REGULAR, HUMAN 100 UNIT/ML 3 ML VIAL SQ PRN (22:32)
[2021-12-24] VITALS: BP 143/70
[2021-12-24] MEDS: IPRATROPIUM NEB FS 0.5 MG/2.5 ML AMPUL.NEB NEB SCH ×3 (00:10→16:42)
[2021-12-24] MEDS: ALBUTEROL FS 2.5 MG/3 ML VIAL.NEB IH SCH ×3 (00:10→16:42)
--- NOTE | 2021-12-24 03:12 | NUR ---
POWDER EXPERT NOTES ECHOCARDIOGRAM ORDERED BY MD; FISH MACHINE FEEDER CAME UP ON UNIT TO CLARIFY IF NEEDED TO REPEAT ECHOCARDIOGRAM IF RECENT TEST DONE 09/18/21, PER FISH MACHINE FEEDER, TRACER POWDER BLENDER SAID TO ASK IF NECESSARY TO BE REPEATED IF PT HAS ONE WITHIN THE LAST 6 MONTHS; PER DEVELOPMENT SPECIALIST MD, ASK CARDIOLOGY IN AM/TOMORROW; CHARGE NURSE MADE AWARE;
--- NOTE | 2021-12-24 07:30 | NUR ---
PACKAGE COLLECTOR OPENING NOTE RECEIVED PATIENT RESTING ON BED, ALERT AND ORIENTED X4. ABLE TO MAKE NEEDS KNOWN. WITH NO COMPLAINTS OF PAIN AT THIS TIME. ON O2 AT 2L VIA NC WITH NO S/SX OF RESPIRATORY DISTRESS NOTED. WITH IV ACCESS AT RIGHT UPPER ARM MIDLINE G18 SALINE LOCKED, PATENT AND INTACT. ON TELE MONITOR CURRENTLY READING SINUS RHYTHM AT 71BPM. WITH CONDOM CATH IN PLACE DRAINING CLEAR, YELLOW URINE. SAFETY MEASURES IN PLACED. CALL LIGHT WITHIN REACH. BED ON LOWEST LOCKED POSITION, SIDE RAILS UP X2. WILL CONTINUE TO MONITOR.
[2021-12-24] MEDS: BLOOD SUGAR DIAGNOSTIC 1 EACH STRIP IN SCH ×2 (07:50→12:41)
[2021-12-24 08:00] VITALS: BP 162/78
[2021-12-24] MEDS: PANTOPRAZOLE 40 MG VIAL IV SCH (09:20)
[2021-12-24] MEDS: DOCUSATE SODIUM 100 MG CAPSULE PO SCH (09:21)
[2021-12-24] MEDS: HYDROCORTISONE 5 MG TABLET PO SCH ×2 (09:21→12:20)
[2021-12-24] MEDS: LEFLUNOMIDE 10 MG TABLET PO SCH (09:21)
[2021-12-24] MEDS: ASPIRIN 81 MG TAB.CHEW PO SCH (09:22)
[2021-12-24] MEDS: ESCITALOPRAM OXALATE (10 MG) 10 MG TABLET PO SCH (09:22)
[2021-12-24] MEDS: TAMSULOSIN 0.4 MG CAP.SR.24H PO SCH (09:22)
[2021-12-24] MEDS: ASCORBIC ACID 500 MG TABLET PO SCH (09:22)
[2021-12-24] MEDS: METOPROLOL TARTRATE 25 MG TABLET PO SCH (09:22)
[2021-12-24] MEDS: CLOTRIMAZOLE 1% 15 GM TUBE TP SCH (09:23)
[2021-12-24] MEDS: ENSURE ENLIVE CHOC 237 ML CAN PO SCH (09:23)
[2021-12-24] MEDS ORDERED: VALSARTAN 80 MG TABLET PO SCH (09:30)
[2021-12-24] MEDS ORDERED: Valsartan 80MG PO (10:47)
[2021-12-24 11:02] LABS: BASOPHILS % (AUTO) 0.4 % (0.0-2.0); EOSINOPHILS % (AUTO) 2.2 % (0.0-6.0); HEMATOCRIT 27 % (39-51); HEMOGLOBIN 8.8 g/dL (13.5-17.5); LYMPHOCYTES # (AUTO) 0.6 K/uL (0.8-4.8); LYMPHOCYTES % (AUTO) 9.4 % (20.0-44.0); MEAN CORPUSCULAR HGB CONC 32 g/dl (31.0-36.0); MEAN CORPUSCULAR VOLUME 100 fL (80-96); MONOCYTES # (AUTO) 0.5 K/uL (0.1-1.30); MONOCYTES % (AUTO) 7.2 % (2.0-12.0); NEUTROPHILS # (AUTO) 5.4 K/uL (1.8-8.9); NEUTROPHILS % (AUTO) 80.8 % (43.0-81.0); PLATELET COUNT (AUTO) 229 K/uL (150-450); RED BLOOD CELL COUNT(AUTO) 2.71 MIL/uL (4.5-6.0); WHITE BLOOD COUNT (AUTO) 6.7 K/uL (4.3-11.0)
[2021-12-24 12:00] VITALS: BP 117/51
[2021-12-24 12:26] LABS: CALCIUM, SERUM 8.9 mg/dL (8.5-10.1); CREATININE 0.9 mg/dL (0.6-1.3); POTASSIUM 2.9 mmol/L (3.5-5.1)
[2021-12-24 15:58] VITALS: BP 122/55
--- NOTE | 2021-12-24 16:28 | NUR ---
CHILD PSYCHOLOGIST NOTES PATIENT WAS SEEN BY DR. PHELAN AND ORDERED PATIENT FOR DISCHARGE TO [facility]. DISCHARGE INSTRUCTION AND EDUCATION PROVIDED TO PATIENT AND EXPLAINED MEDICATIONS AND PRESCRIPTIONS. PATIENT VERBALIZED UNDERSTANDING. DISCHARGE FORM AND BELONGINGS LIST FORM SIGNED BY PATIENT. ALL BELONGINGS ACCOUNTED FOR. NAME WRIST BAND AND IV LINE REMOVED. CALLED [facility] AND GAVE REPORT TO RN OF THE FACILITY. PATIENT WAS PICKED UP BY AMBULANCE PERSONNEL IN STABLE CONDITION. MD AND CHARGE NURSE ARE AWARE OF THE DISCHARGE.
[2021-12-24] MEDS ORDERED: K PHOS NEUTRAL 250 MG TABLET PO ONE (17:00)
== END 2021-12-24 16:30 | DRG 871 ==
LOC: ER 09:27 → MED 12:40 → TELE 12-17 01:11
PROVIDERS: ADMIT Internal Medicine; ATTEND Student in an Organized Health Care Education/Training Program
PROC: 05H933Z Insertion of Infusion Device into Right Brachial Vein, Percutaneous Approach (ICD-10-PCS; principal; 2021-12-17)
PROC: 0DB68ZX Excision of Stomach, Via Natural or Artificial Opening Endoscopic, Diagnostic (ICD-10-PCS; 2021-12-20)
PROC: 4A023N7 Measurement of Cardiac Sampling and Pressure, Left Heart, Percutaneous Approach (ICD-10-PCS; 2021-12-23)
PROC: B211YZZ Fluoroscopy of Multiple Coronary Arteries using Other Contrast (ICD-10-PCS; 2021-12-23)
DX: A41.9 Sepsis, unspecified organism (principal); J15.6 Pneumonia due to other Gram-negative bacteria; G93.41 Metabolic encephalopathy; I21.A1 Myocardial infarction type 2; I50.23 Acute on chronic systolic (congestive) heart failure; J96.21 Acute and chronic respiratory failure with hypoxia; E43 Unspecified severe protein-calorie malnutrition; J44.0 Chronic obstructive pulmonary disease with (acute) lower respiratory infection; E87.0 Hyperosmolality and hypernatremia; D68.9 Coagulation defect, unspecified; L97.419 Non-pressure chronic ulcer of right heel and midfoot with unspecified severity; L97.429 Non-pressure chronic ulcer of left heel and midfoot with unspecified severity; J98.11 Atelectasis; I69.359 Hemiplegia and hemiparesis following cerebral infarction affecting unspecified side; I11.0 Hypertensive heart disease with heart failure; Z20.822 Contact with and (suspected) exposure to COVID-19; K29.70 Gastritis, unspecified, without bleeding; K44.9 Diaphragmatic hernia without obstruction or gangrene; Z79.01 Long term (current) use of anticoagulants; Z79.899 Other long term (current) drug therapy; Z79.51 Long term (current) use of inhaled steroids; Z79.4 Long term (current) use of insulin; Z79.82 Long term (current) use of aspirin; K21.9 Gastro-esophageal reflux disease without esophagitis; E87.6 Hypokalemia; E78.5 Hyperlipidemia, unspecified; I48.91 Unspecified atrial fibrillation; D64.9 Anemia, unspecified; E11.621 Type 2 diabetes mellitus with foot ulcer; I25.10 Atherosclerotic heart disease of native coronary artery without angina pectoris; E88.09 Other disorders of plasma-protein metabolism, not elsewhere classified; Z86.711 Personal history of pulmonary embolism; N40.0 Benign prostatic hyperplasia without lower urinary tract symptoms; Z87.81 Personal history of (healed) traumatic fracture; I48.0 Paroxysmal atrial fibrillation; M06.9 Rheumatoid arthritis, unspecified; Y95 Nosocomial condition; N28.1 Cyst of kidney, acquired; K57.30 Diverticulosis of large intestine without perforation or abscess without bleeding
CPT/HCPCS: 36415; 36600; 71045-TC; 75574; 80048-TC; 80053-TC; 80061-TC; 80076-TC; 80202-TC; 82272-TC; 82607-TC; 82728-TC; 82803-TC; 82962-TC; 83540-TC; 83605-TC; 83735-TC; 83880; 84100-TC; 84155; 84165; 84439-TC; 84443-TC; 84484-TC; 85025-TC; 85027-TC; 85610-TC; 85730-TC; 86850-TC; 87040-TC; 87070-TC; 87081-TC; 93307-TC; 94799-TC; 97116-TC; 97530-TC; A4349; C1769; C1887; C9113; C9803; G0378; G0500; J0360; J0696; J1100; J1644; J1815; J2250; J2405; J2543; J2704; J3010; J3370; J3480; J3490; J7030; J7040; J7050; J7060; J7070; P9016; Q9967